=== PATIENT | female | born 1955 | race Caucasian/White ===

== ENCOUNTER 2017-09-24 21:21 | Observation (INO) | payer OTHER, SELFPAY ==
--- OUTSIDE RECORDS SUMMARY | 2017-09-24 21:23 | XMS REPORT | Clinical Summary ---
:1955 Author Organization [facility] Address [address] [place] [id number] Care Team Providers Name Role Phone Quang Jessica MD Primary Care Provider Allergies Active Allergy Reactions Severity Noted Date Comments Griseofulvin 10/22/2015 Sumatriptan 10/22/2015 Mefloquine 10/22/2015 Minocycline 10/22/2015 Nsaids (Non-Steroidal Anti-Inflammatory Drug) 10/22/2015 Rifampin 10/22/2015 Sulfa (Sulfonamide Antibiotics) 10/22/2015 Tizanidine 10/22/2015 Current Medications No known medications Active Problems Not on file Social History Tobacco Use Types Packs/Day Years Used Date Never Smoker Alcohol Use Drinks/Week oz/Week Comments No admits to drinking 3 times a year. Sex Assigned at Date Recorded Not on file Last Filed Vital Signs Not on file Plan of Treatment Health Maintenance Due Date Last Done Comments PAP SMEAR 07/24/1975 COLONOSCOPY 2004 MAMMOGRAM 2004 SHINGRIX VACCINE (#1) 2004 ZOSTER VACCINE 2014 INFLUENZA VACCINE 12/13/2017 Results Not on fileafter 09/23/2016 Insurance Payer Benefit Plan / Group Subscriber ID Type Phone Address AETNA AETNA HMO,POS,EPO, MC/EC xxxxxxxxx HMO
[2017-09-24 22:05] LABS: Absolute Lymphocytes (CBC) 2.2 K/uL (0.7-4.9); Absolute Monocytes 0.4 K/uL (0.1-1.3); Basophils % 0.9 % (0-1.3); Eosinophils % 3.7 % (0-4.4); Hematocrit 36.4 % (36.0-45.0); Lymphocytes % 37.4 % (15.3-44.8); MCH 31.8 pg (27.0-35.0); MCV 92.9 fL (80-100); MPV 9.4 fL (7.6-11.3); Monocytes % 6.8 % (3.3-12.3); RBC Red Blood Cell Count 3.92 M/uL (3.86-4.86)
--- NOTE | 2017-09-24 22:15 | RAD REPORT ---
EXAM DESCRIPTION: RAD - Chest Single View - 09/24/2017 10:06 pm CLINICAL HISTORY: Chest pain. COMPARISON: 07/23/2012 FINDINGS: Portable technique limits examination quality. The lungs are grossly clear. The heart is normal in size. No displaced fractures. IMPRESSION: No acute intrathoracic process suspected.
[2017-09-24 22:17] LABS: Protime INR 0.92
[2017-09-24 22:18] LABS: Bicarbonate 25 mEq/L (21-31); Glucose Level 144 mg/dL (65-120); Potassium 3.4 mEq/L (3.6-5.0); Sodium Level 139 mEq/L (135-145)
[2017-09-24 22:24] LABS: ALT/SGPT 13 IU/L (10-60); AST/SGOT 20 IU/L (10-42); Albumin 3.9 g/dL (3.2-5.5); Alkaline Phosphatase 49 IU/L (42-121); BUN Blood Urea Nitrogen 17 mg/dL (6-20); Bilirubin Direct < 0.1 mg/dL (0-0.2); Bilirubin Total 0.3 mg/dL (0.3-1.2); Creatine Phosphokinase 45 IU/L (22-269); Magnesium 1.8 mg/dL (1.8-2.5); Protein, Total 6.8 g/dL (6.0-8.3)
[2017-09-24 22:28] LABS: CKMB Creatine Kinase MB 0.7 ng/ml (0.3-4.0)
[2017-09-24] MEDS ORDERED: NITROGLYCERIN 0.4 MG/TAB SL ONE (22:52)
[2017-09-24] MEDS ORDERED: ACETAMINOPHEN 500 MG TAB PO PRN (23:19)
[2017-09-24] MEDS ORDERED: MORPHINE 4 MG/ML SYR ONE (23:29)
--- NOTE | 2017-09-24 23:31 | EDPHYS ---
Physician Documentation [facility] Name: Rosario Jorge Age: 62 yrs Sex: Female : 1955 Arrival Date: 09/24/2017 Time: 21:23 Bed 26 Private MD: ED Physician Joel Lua HPI: 09/25 05:29 This 62 yrs old Female presents to ER via EMS with complaints of Chest Pain. tw4 05:29 The patient or guardian reports chest pain that is located primarily in the anterior tw4 chest wall. Onset: today. The pain does not radiate. Associated signs and symptoms: The patient has no apparent associated signs or symptoms. The chest pain is described as dull, a heaviness. Duration: The patient or guardian reports a single episode. Modifying factors: The symptoms are alleviated by nothing. the symptoms are aggravated by nothing. Severity of pain: At its worst the pain was moderate in the emergency department the pain is unchanged. Historical: - Allergies: 09/24 21:57 Sulfa (Sulfonamide Antibiotics); tl3 - Immunization history:: Adult Immunizations up to date. - Social history:: Smoking status: Patient/guardian denies using tobacco, never smoked. ROS: 09/25 05:29 Constitutional: Negative for fever, chills, and weight loss, Respiratory: Negative for tw4 shortness of breath, cough, wheezing, and pleuritic chest pain, Abdomen/GI: Negative for abdominal pain, nausea, vomiting, diarrhea, and constipation, Back: Negative for injury and pain, MS/Extremity: Negative for injury and deformity. Cardiovascular: Positive for chest pain, Negative for edema, orthopnea, palpitations. Exam: 05:29 Constitutional: This is a well developed, well nourished patient who is awake, alert, tw4 and in no acute distress. 05:29 Chest/axilla: Normal chest wall appearance and motion. Nontender with no deformity. tw4 No lesions are appreciated. Cardiovascular: Regular rate and rhythm with a normal S1 and S2. No gallops, murmurs, or rubs. Normal PMI, no JVD. No pulse deficits. Respiratory: Lungs have equal breath sounds bilaterally, clear to auscultation and percussion. No rales, rhonchi or wheezes noted. No increased work of breathing, no retractions or nasal flaring. Abdomen/GI: Soft, non-tender, with normal bowel sounds. No distension or tympany. No guarding or rebound. No evidence of tenderness throughout. Back: No spinal tenderness. No costovertebral tenderness. Full range of motion. MS/ Extremity: Pulses equal, no cyanosis. Neurovascular intact. Full, normal range of motion. Vital Signs: 09/24 21:57 BP 138 / 92; Pulse 78; Resp 18; Pulse Ox 100% on R/A; tl3 22:28 BP 130 / 72; Pulse 80; Resp 18; Pulse Ox 96% ; tl3 23:35 BP 120 / 80; Pulse 79; Resp 16; Pulse Ox 98% on 2 lpm NC; tl3 09/25 00:18 BP 124 / 84; Pulse 73; Resp 16; Pulse Ox 97% on 2 lpm NC; tl3 00:18 Pain 6/10; tl3 MDM: 09/24 21:24 Patient medically screened. 09/25 05:42 Differential diagnosis: abnormal EKG, acute myocardial infarction. TREMAYNE Risk Score: 1 - tw4 patient's age is greater or equal to 65 years, 1- Known CAD. Data reviewed: vital signs, nurses notes. Data interpreted: fashion marketer: rhythm is normal sinus rhythm, Pulse oximetry: Interpretation: normal. Counseling: I had a detailed discussion with the patient and/or guardian regarding: the historical points, exam findings, and any diagnostic results supporting the discharge/admit diagnosis. Physician consultation: Logan Hernandez MD regarding admission, patient's condition, and will see patient in inpatient room. Admission orders: after a detailed discussion of the patient's condition and case, the admit orders are written by me. 09/24 21:29 Order name: Basic Metabolic Panel 09/24 21:29 Order name: BNP 09/24 21:29 Order name: CBC with Diff; Complete Time: 22:44 09/24 21:29 Order name: Ckmb; Complete Time: 22:44 09/24 21:29 Order name: CPK; Complete Time: 22:44 09/24 21:29 Order name: LFT's; Complete Time: 22:44 09/24 21:29 Order name: Magnesium; Complete Time: 22:44 09/24 21:29 Order name: PT-INR; Complete Time: 22:44 tw4 09/24 21:29 Order name: Ptt, Activated; Complete Time: 22:44 tw4 09/24 21:29 Order name: Troponin (emerg Dept Use Only); Complete Time: 22:44 tw4 09/24 21:30 Order name: Basic Metabolic Panel; Complete Time: 22:44 EDIN 09/24 21:30 Order name: BNP B-Type Natriuretic Peptide; Complete Time: 22:44 EDIN 09/24 23:21 Order name: Lipid Profile [facility] 09/24 23:21 Order name: Lipid Profile [facility] 09/24 21:29 Order name: XRAY Chest (1 view); Complete Time: 22:44 tw4 09/24 21:29 Order name: EKG; Complete Time: 21:30 tw 09/24 21:29 Order name: Cardiac monitoring; Complete Time: 22:04 tw4 09/24 21:29 Order name: EKG - Nurse/Tech; Complete Time: 22:04 tw 09/24 21:29 Order name: IV Saline Lock; Complete Time: 22:04 tw4 09/24 23:21 Order name: Heart Healthy [facility] 09/24 23:21 Order name: Echo with Doppler [facility] 09/24 23:21 Order name: Echo with Doppler [facility] 09/24 23:21 Order name: EKG Electrocardiogram [facility] 09/24 23:21 Order name: EKG Electrocardiogram [facility] 09/24 23:21 Order name: Troponin I [facility] 09/24 23:21 Order name: Troponin I [facility] 09/24 23:21 Order name: Troponin I [facility] 09/24 21:29 Order name: Labs collected and sent; Complete Time: 22:04 tw4 09/24 21:29 Order name: O2 Per Protocol; Complete Time: 22:04 tw4 09/24 21:29 Order name: O2 Sat Monitoring; Complete Time: 22:04 tw4 Administered Medications: 09/24 22:55 Drug: Nitroglycerin 0.4 mg Route: Sublingual; tl3 23:00 Drug: Nitroglycerin 0.4 mg Route: Sublingual; tl3 09/25 00:44 Follow up: Response: No adverse reaction; Blood pressure is lowered tl3 00:45 Follow up: Response: No adverse reaction tl3 09/24 23:35 Drug: morphine 4 mg Route: IVP; Infused Over: 5 mins; Site: right antecubital; tl3 09/25 00:18 Follow up: Pain 6/10 Adult; Response: No adverse reaction; Pain is decreased tl3 01:06 Drug: morphine 2 mg Route: IVP; Infused Over: 3 mins; Site: right antecubital; tl3 01:11 Follow up: Response: No adverse reaction; Pain is decreased tl3 Disposition: 09/24/17 23:30 Hospitalization ordered by Logan Hernandez for Observation. Preliminary diagnosis are Chest pain, unspecified, Angina pectoris, unspecified. - Bed requested for Telemetry/MedSurg (observation). - Status is Observation. tl3 - Condition is Stable. - Problem is new. - Symptoms have improved. UTI on Admission? No Signatures: Dispatcher [employer] EDMS Lakia Roberts RN RN Joel Rodgers MD MD tw4 Mary Burroughs RN RN tl3 Corrections: (The following items were deleted from the chart) 09/24 23:34 23:30 Hospitalization Ordered by Logan Hernandez MD for Observation. Preliminary diagnosis is Chest pain, unspecified; Angina pectoris, unspecified. Bed requested for Telemetry/MedSurg (observation). Status is Observation. Condition is Stable. Problem is new. Symptoms have improved. UTI on Admission? No. tw4 09/25 01:12 09/24 23:34 09/24/2017 23:30 Hospitalization Ordered by Logan Hernandez MD for tl3 Observation. Preliminary diagnosis is Chest pain, unspecified; Angina pectoris, unspecified. Bed requested for Telemetry/MedSurg (observation). Status is Observation. Condition is Stable. Problem is new. Symptoms have improved. UTI on Admission? No. mw 09/25 05:41 05:29 Constitutional: Negative for fever, chills, and weight loss, Cardiovascular: tw4 Negative for chest pain, palpitations, and edema, Respiratory: Negative for shortness of breath, cough, wheezing, and pleuritic chest pain, Abdomen/GI: Negative for abdominal pain, nausea, vomiting, diarrhea, and constipation, Back: Negative for injury and pain, Neuro: Negative for headache, weakness, numbness, tingling, and seizure, tw4
--- NOTE | 2017-09-24 23:31 | ER ---
Nurse's Notes [facility] Name: Rosario Jorge Age: 62 yrs Sex: Female : 1955 Arrival Date: 09/24/2017 Time: 21:23 Bed 26 Private MD: Diagnosis: Chest pain, unspecified;Angina pectoris, unspecified Presentation: 09/24 21:30 Presenting complaint: EMS states: pt c/o chest pain that radiates to her left arma nd tl3 up into the right side of her neck and jaw. 21:30 Transition of care: patient was not received from another setting of care. Onset of tl3 symptoms was September 24, 2017. Initial Sepsis Screen: Does the patient meet any 2 criteria? No. Patient's initial sepsis screen is negative. Does the patient have a suspected source of infection? No. Patient's initial sepsis screen is negative. Care prior to arrival: None. 21:30 Method Of Arrival: EMS: [facility] tl3 21:30 Acuity: EMILIA 2 tl3 Triage Assessment: 21:57 General: Appears in no apparent distress. comfortable, well groomed, well developed, tl3 well nourished, Behavior is calm, cooperative, appropriate for age. Pain: Complains of pain in chest Pain radiates to left arm. EENT: No signs and/or symptoms were reported regarding the EENT system. Neuro: Cardiovascular: Heart tones S1 S2 present Capillary refill < 3 seconds in bilateral fingers toes Patient's skin is warm and dry. Respiratory: Airway is patent Trachea midline Respiratory effort is even, unlabored, Respiratory pattern is regular, symmetrical, Breath sounds are clear bilaterally. GI: No signs and/or symptoms were reported involving the gastrointestinal system. : No signs and/or symptoms were reported regarding the genitourinary system. Derm: No signs and/or symptoms reported regarding the dermatologic system. Musculoskeletal: No signs and/or symptoms reported regarding the musculoskeletal system. Historical: - Allergies: 21:57 Sulfa (Sulfonamide Antibiotics); tl3 - Immunization history:: Adult Immunizations up to date. - Social history:: Smoking status: Patient/guardian denies using tobacco, never smoked. Screenin:00 Abuse screen: Denies threats or abuse. Nutritional screening: No deficits noted. tl3 Tuberculosis screening: No symptoms or risk factors identified. Fall Risk None identified. Assessment: 22:00 Reassessment: pt resting quietly, in NAD, talkative, good skin color. tl3 22:00 Pain: Pain began 30 min ago. tl3 22:28 Reassessment: Patient appears in no apparent distress at this time. No changes from tl3 previously documented assessment. Patient and/or family updated on plan of care and expected duration. Pain level reassessed. Patient is alert, oriented x 3, equal unlabored respirations, skin warm/dry/pink. at bedside. 23:35 Reassessment: Patient appears in no apparent distress at this time. No changes from tl3 previously documented assessment. Patient and/or family updated on plan of care and expected duration. Pain level reassessed. Patient is alert, oriented x 3, equal unlabored respirations, skin warm/dry/pink. patient feeling some relief after nitro tabs. 09/25 00:18 Reassessment: Patient appears in no apparent distress at this time. No changes from tl3 previously documented assessment. Patient and/or family updated on plan of care and expected duration. Pain level reassessed. Patient is alert, oriented x 3, equal unlabored respirations, skin warm/dry/pink. Vital Signs: 09/24 21:57 BP 138 / 92; Pulse 78; Resp 18; Pulse Ox 100% on R/A; tl3 22:28 BP 130 / 72; Pulse 80; Resp 18; Pulse Ox 96% ; tl3 23:35 BP 120 / 80; Pulse 79; Resp 16; Pulse Ox 98% on 2 lpm NC; tl3 14 00:18 BP 124 / 84; Pulse 73; Resp 16; Pulse Ox 97% on 2 lpm NC; tl3 00:18 Pain 6/10; tl3 ED Course: 09/24 21:23 Patient arrived in ED. ds1 21:24 Joel Lua MD is Attending Physician. tw4 21:54 Mary Burroughs, GARETH is Primary Nurse. tl3 21:56 Triage completed. tl3 21:57 Arm band placed on left wrist. tl3 22:00 No apparent distress. Resting quietly. Awaiting lab results. tl3 22:00 Patient has correct armband on for positive identification. Placed in gown. Bed in low tl3 position. Call light in reach. Side rails up X 1. youth nutritional monitor on. Pulse ox on. NIBP on. 22:00 No provider procedures requiring assistance completed. Maintain EMS IV. Dressing tl3 intact. Good blood return noted. Site clean \T\ dry. Gauge \T\ site: 20g. Patient maintains SpO2 saturation greater than 95% on room air. 22:03 X-ray completed. Portable x-ray completed in exam room. Patient tolerated procedure la2 well. 22:06 XRAY Chest (1 view) In Process Unspecified. EDMS 23:30 Logan Hernandez MD is Hospitalizing Provider. tw4 09/25 00:42 Patient admitted, IV remains in place. tl3 Administered Medications: 09/24 22:55 Drug: Nitroglycerin 0.4 mg Route: Sublingual; tl3 23:00 Drug: Nitroglycerin 0.4 mg Route: Sublingual; tl3 09/25 00:44 Follow up: Response: No adverse reaction; Blood pressure is lowered tl3 00:45 Follow up: Response: No adverse reaction tl3 09/24 23:35 Drug: morphine 4 mg Route: IVP; Infused Over: 5 mins; Site: right antecubital; tl3 09/25 00:18 Follow up: Pain 6/10 Adult; Response: No adverse reaction; Pain is decreased tl3 01:06 Drug: morphine 2 mg Route: IVP; Infused Over: 3 mins; Site: right antecubital; tl3 01:11 Follow up: Response: No adverse reaction; Pain is decreased tl3 Outcome: 09/24 23:30 Decision to Hospitalize by Provider. tw4 09/25 00:42 Admitted to Med/surg accompanied by tech, via stretcher, with oxygen. tl3 Condition: stable Discharge instructions given to patient, family, Instructed on the need for admit, Demonstrated understanding of instructions. 01:12 Patient left the ED. tl3 Signatures: Dispatcher [employer] EDSD Parris Vail ds1 Daniella Cobos la2 Joel Lua MD MD tw4 Mary Burroughs RN RN tl3
[2017-09-25] MEDS ORDERED: MORPHINE 4 MG/ML SYR ONE (01:02)
[2017-09-25 01:28] VITALS: BMI 29.2
[2017-09-25] MEDS ORDERED: HYDROCODONE/APAP 10/325 TAB PO PRN (03:43)
[2017-09-25] MEDS ORDERED: ALPRAZOLAM 0.5 MG TABLET PO PRN (03:43)
[2017-09-25] MEDS ORDERED: CYCLOBENZAPRINE 10 MG TAB PO PRN (03:43)
[2017-09-25] MEDS ORDERED: ADALIMUMAB SQ SCH (03:45)
--- NOTE | 2017-09-25 03:58 | P.HP ---
Certification for Inpatient Patient admitted to: Observation With expected LOS: <2 Midnights Patient will require the following post-hospital care: None Practitioner: I am a practitioner with admitting privileges, knowledge of patient current condition, hospital course, and medical plan of care. Services: Services provided to patient in accordance with Admission requirements found in Title 42 Section 412.3 of the Code of Federal Regulations Patient History Date of Service: 09/25/17 Reason for admission: Chest pain rule out acute coronary syndrome History of Present Illness: Patient is a 62 year old female who came to the hospital with chest discomfort. She fell like there was a huge weight on her chest and she was not getting any better. The chest pain worsened and she got short of breath. She has a history of multiple autoimmune disease including rheumatoid arthritis and ulcerative colitis. However, she states the pain was not reproducible and she has not had this kind of pain with any of her medical conditions. She denies any nausea or vomiting. She denies any significant family history. She will be admitted to the hospital to be ruled out for acute coronary syndrome. Will go ahead and do an echocardiogram and possible stress testing in the morning. Allergies adhesive tape Allergy (Verified 09/25/17 01:41) Itching/Hives/Rash griseofulvin Allergy (Verified 09/25/17 01:41) Hives/Rash mefloquine [From Lariam] Allergy (Verified 09/25/17 01:41) Hives/Rash Sulfa (Sulfonamide Antibiotics) Allergy (Verified 09/25/17 00:33) Itching/Hives/Rash sumatriptan [From Imitrex] Allergy (Verified 09/25/17 01:41) Shortness of breath Easwyvaz-[id number] Antimigraine Agents Allergy (Verified 09/25/17 01:41) Shortness of breath minocycline Adverse Reaction (Verified 09/25/17 01:41) Nausea/Vomiting NSAIDS (Non-Steroidal Anti-Inflamma Adverse Reaction (Verified 09/25/17 01:41) Nausea/Vomiting rifampin Adverse Reaction (Verified 09/25/17 01:41) Nausea/Vomiting tizanidine [From Zanaflex] Adverse Reaction (Verified 09/25/17 01:41) Nausea/Vomiting Home Medications: Adalimumab [Humira 40 MG/0.8 ML*] 1 alok SQ Q10D 09/25/17 Alprazolam 1 tab PO BID PRN 09/25/17 B12/Levomefolate Calcium/B-6 [Foltx Tablet] 1 each PO DAILY 09/25/17 Clonazepam [Klonopin] 1 mg PO QID 09/25/17 Colesevelam HCl [Welchol] 4 tab PO DAILY 09/25/17 Cyclobenzaprine [Flexeril] 10 mg PO BEDTIME PRN 09/25/17 Cyproheptadine HCl 4 ml PO BID 09/25/17 Diphenox/Atropine [Lomotil] 1 tab PO DAILY 09/25/17 Hydrocodone 10/APAP 325 [Munson 10/325] 1 tab PO Q6H PRN 09/25/17 Levothyroxine [Synthroid*] 1 tab PO DAILY 09/25/17 Ondansetron [Zofran] 4 mg PO Q6H PRN 09/25/17 Vit D3/Folic Acid/B2/B6/B12 [Folgard Tablet] 1 each PO DAILY 09/25/17 Zolpidem Tartrate [Zolpidem Tartrate ER] 12.5 mg PO BEDTIME 09/25/17 - Past Medical/Surgical History Has patient received pneumonia vaccine in the past: Yes Diabetic: No -: resolved resistant staph infection 3.5 years ago -: celiac disease -: osteoporosis -: rheumatoid arthritis -: colitis -: frequent UTIs -: carpal tunnel -: bilateral broken wrist -: appendectomy 1997 -: lap ovarian cyst rupture 1988 -: sinus sx-partial ethmoidectomy, purvi bullosa 1991 -: left ACL repair -: partial hysterectomy -: thyroid surgery -: bladder suspension and rectal repair -: carpal tunnel repair - Family History Mother Medical History: Heart disease, GI disease, Cancer, Other (see notes) Notes: IBS Father Medical History: Heart disease - Social History Smoking Status: Never smoker Alcohol use: Yes CD- Drugs: No Caffeine use: No Place of Residence: Home Review of Systems 10-point ROS is otherwise unremarkable Physical Examination - Vital Signs Temperature: 97.7 F Blood Pressure: 131/69 Pulse: 70 Respirations: 20 Pulse Ox (%): 98 - Physical Exam General: Alert, In no apparent distress, Oriented x3 HEENT: Atraumatic, PERRLA, Mucous membr. moist/pink, EOMI, Sclerae nonicteric Neck: Supple, 2+ carotid pulse no bruit, No LAD, Without JVD or thyroid abnormality Respiratory: Clear to auscultation bilaterally, Normal air movement Cardiovascular: Regular rate/rhythm, Normal S1 S2, No murmurs Gastrointestinal: Normal bowel sounds, Soft and benign, Non-distended, No tenderness, No rebound, No guarding Musculoskeletal: No clubbing, No swelling, No tenderness Integumentary: No rashes Neurological: Normal gait, Normal speech, Normal strength at 5/5 x4 extr, Normal tone, Sensation intact, Cranial nerves 3-12 intact, Normal affect Lymphatics: No axilla or inguinal lymphadenopathy - Studies Laboratory Data (last 24 hrs) 09/24/17 21:30: PT 10.8, INR 0.92, APTT 28.7 09/24/17 21:30: WBC 5.9, Hgb 12.5, Hct 36.4, Plt Count 267 09/24/17 21:30: B-Natriuretic Peptide 23 09/24/17 21:30: Sodium 139, Potassium 3.4 L, BUN 17, Creatinine 0.88, Glucose 144 H, Magnesium 1.8, Total Bilirubin 0.3, AST 20, ALT 13, Alkaline Phosphatase 49 Assessment & Plan - Problems (Diagnosis) (1) Chest pain, rule out acute myocardial infarction Current Visit: Yes Status: Acute (2) Rheumatoid arthritis Current Visit: Yes Status: Acute (3) Ulcerative colitis Current Visit: Yes Status: Acute (4) Celiac disease Current Visit: Yes Status: Acute (5) Irritable bowel syndrome Current Visit: Yes Status: Acute (6) Fibromyalgia Current Visit: Yes Status: Acute - Plan 1. Serial troponins and EKG 2. Cardiology consultation 3. Echocardiogram and stress test in a.m.. If negative possible discharge home 4. Anti-platelet therapy, anti coagulation, beta-maribel, statin, and O2 as needed 5. IV morphine for pain 6. Nitro p.r.n. 7. GI and DVT prophylaxis - Advance Directives Does patient have a Living Will: Yes Does patient have a Durable POA for Healthcare: Yes - Code Status/Comfort Care Code Status Assessed: Yes Code Status: Full Code Critical Care: No Time Spent Managing PTS Care (In Minutes): 50
[2017-09-25 04:13] VITALS: O2SAT 98
[2017-09-25] MEDS ORDERED: REGADENOSON 0.4 MG/5 ML SYR IV ONE (08:11)
[2017-09-25] MEDS ORDERED: VIT D3 PO SCH (09:00)
[2017-09-25] MEDS ORDERED: LEVOTHYROXINE SOD 0.1 MG TAB PO SCH (09:00)
[2017-09-25] MEDS ORDERED: LEVOMEFOLATE CALCIUM PO SCH (09:00)
[2017-09-25] MEDS ORDERED: clonazePAM 1 MG TAB PO SCH (09:00)
[2017-09-25] MEDS ORDERED: FOLIC ACID PO SCH (09:00)
[2017-09-25] MEDS ORDERED: B12 PO SCH ×2 (09:00)
[2017-09-25] MEDS ORDERED: METOPROLOL TAR 50 MG TAB PO SCH (09:00)
[2017-09-25] MEDS ORDERED: ENOXAPARIN 40 MG/0.4 ML SQ SCH (09:00)
[2017-09-25] MEDS ORDERED: DIPHENOX/ATROP SULF 1 TAB PO SCH (09:00)
[2017-09-25] MEDS ORDERED: CYPROHEPTADINE PO SCH (09:00)
[2017-09-25] MEDS ORDERED: B6 PO SCH ×2 (09:00)
[2017-09-25] MEDS ORDERED: ASPIRIN EC 81 MG TAB PO SCH (09:00)
[2017-09-25] MEDS ORDERED: COLESEVELAM HCL PO SCH (09:00)
[2017-09-25] MEDS ORDERED: B2 PO SCH (09:00)
--- NOTE | 2017-09-25 10:12 | RAD REPORT ---
EXAM DESCRIPTION: NM - Rest Stress Cardiac Imaging - 09/25/2017 10:05 am CLINICAL HISTORY: Chest pain. COMPARISON: None. TECHNIQUE: The patient was administered approximately 10mCi of Tc 99m Sestamibi prior to resting SPE CT imaging of the heart. The patient was then administered approximately 30 mCi of Tc 99m Sestamibi f ollowing exercise or pharmacologic stress. Multiplanar SPECT images were reviewed. FINDINGS: No stress induced ischemic defect is seen to suggest stress induced ischemia. No fixed def ect is seen to suggest hibernating myocardium or scarred myocardium. The end diastolic volume is 68 ml, the end systolic volume is 24 ml, and the ejection fraction is 65 %. IMPRESSION: No stress induced ischemia.
--- NOTE | 2017-09-25 11:52 | TREADPHA ---
DX: CHEST PAIN Date of Study: 09/25/17 Ht: 5 4.5 Wt: 173 lb 6.4 oz Consulting Physician: VENICE MEDICATIONS: TYLENOL, NORCO, XANAX, ASPIRIN, KLONOPIN, FLEXERIL, LOMOTIL, LOVENOX. HISTORY: CHEST PAIN, MYOCARDIAL INFARCTION WAS RULED OUT. PHYSICIAL EXAMINATION: RESTING B.P.: 96/72 RESTING H.R.: 68 RESTING EKG: NORMAL PROTOCOL: LEXISCAN EXERCISE TIME: 3:30 B.P. AT PEAK STRESS: 120/86 IMPRESSION: LEXISCAN STRESS TEST PERFORMED. CARDIOLITE INJECTED PER PROTOCOL. NO SUPRA VENTRICULAR TACHYCARDIA OR VENTRICULAR TACHYCARDIA NOTED. COMPLAINTS OF CHEST PAIN, NO EKG CHANGES, SEE NUCLEAR MEDICINE REPORT. NON DIAGNOSTIC EKG WITH LEXISCAN STRESS.
--- NOTE | 2017-09-25 14:45 | EKG ---
Test Date: 2017-09-24 Test Time: 21:27:31 Satellite Dish Repairer: AGUSTO MEASUREMENT RESULTS: Intervals: Rate: 75 IL: 158 QRSD: 88 QT: 416 QTc: 464 [place]: P: 57 IL: 158 QRS: 43 T: 62 INTERPRETIVE STATEMENTS: Normal sinus rhythm Normal ECG Compared to ECG 10/15/2005 06:25:00 Sinus bradycardia no longer present Electronically Signed On 09-25-17 14:44:23 CDT by Gasper Damico
--- NOTE | 2017-09-25 15:49 | ECHO ---
HEIGHT: 5 ft 4.5 in WEIGHT: 173 lb 6.4 oz DATE OF STUDY: 09/25/[address]: Logan Hernandez MD 2-DIMENSIONAL: YES M.MODE: YES DOPPLER: YES COLOR FLOW: YES TDS: NO PORTABLE: NO DEFINITY: NO BUBBLE STUDY: NO DIAGNOSIS: CHEST PAIN CARDIAC HISTORY: CATHERIZATION: NO SURGERY: NO PROSTHETIC VALVE: NO PACEMAKER: NO MEASUREMENTS (cm) DIASTOLIC (NORMALS) SYSTOLIC (NORMALS) IVSd 1.4 (0.6-1.2) LA Diam 3.3 (1.9-4.0) LVEF 64% LVIDd 3.8 (3.5-5.7) LVIDs 2.5 (2.0-3.5) %FS 34% LVPWd 1.1 (0.6-1.2) Ao Diam 2.9 (2.0-3.7) 2 DIMENSIONAL ASSESSMENT: RIGHT ATRIUM: NORMAL LEFT ATRIUM: NORMAL RIGHT VENTRICLE: NORMAL LEFT VENTRICLE: NORMAL TRICUSPID VALVE: NORMAL MITRAL VALVE: NORMAL PULMONIC VALVE: NORMAL AORTIC VALVE: NORMAL PERICARDIAL EFFUSION: NONE AORTIC ROOT: NORMAL LEFT VENTRICULAR WALL MOTION: NORMAL DOPPLER/COLOR FLOW: TRACE TRICUSPID REGURGITATION. NORMAL RIGHT VENTRICULAR SYSTOLIC PRESSURE. COMMENTS: NORMAL 2D ECHOCARDIOGRAM. TRACE TRICUSPID REGURGITATION. TECHNOLOGIST: Bill ROGERS
[2017-09-25 16:24] VITALS: BP 114/56; TEMP 97.8
[2017-09-25] MEDS ORDERED: ZOLPIDEM TARTRATE 12.5 MG PO SCH (21:00)
== END 2017-09-25 17:53 | disposition home or self-care (01) ==
LOC: ER 21:21 → ERHOLD 09-25 00:04 → 2ND 09-25 00:35
PROVIDERS: ADMIT Hospitalist; ATTEND Family Medicine
DX: R07.9 Chest pain, unspecified (principal); K51.90 Ulcerative colitis, unspecified, without complications; K90.0 Celiac disease; K58.9 Irritable bowel syndrome, unspecified; M79.7 Fibromyalgia; M06.9 Rheumatoid arthritis, unspecified; M81.0 Age-related osteoporosis without current pathological fracture
CPT/HCPCS: 36415; 71045; 78452; 80048; 80061; 80076; 82550; 82553; 83735; 83880; 84484; 85025; 85610; 85730; 93005; 93017; 93306; 96374; 99285; A9500; G0378; J1650; J2785

== ENCOUNTER 2019-08-25 03:28 | Inpatient (IN) | payer OTHER ==
--- OUTSIDE RECORDS SUMMARY | 2019-08-25 03:37 | XMS REPORT ---
:1955 Author Organization [facility] t Address [address] [place] [address] Care Team Providers Name Role Phone Unavailable Unavailable Unavailable Payers Payer Name Policy Type Policy Number Effective Date Expiration D ate Problems This patient has no known problems. Allergies, Adverse Reactions, Alerts Allergy Name Allergy Status Severity Reaction(s) Onset Inactive Treat ing Comments Type Date Date Clinician adhesive tape DA Active SV 2-24 00:00: 00 latex DA Active MO 3-30 00:00: 00 mefloquine DA Active MO 3 00:00: 00 NSAIDS DA Active MO 2015-05 (Non-Steroidal 0-03 Anti-Inflamma 00:00: 00 Sulfa DA Active MO 2015-05 (Sulfonamide 0-03 Antibiotics) 00:00: 00 rifampin DA Active U 2015-05 0-03 00:00: 00 griseofulvin DA Active MO 2015-05 0-03 00:00: 00 adhesive tape DA Active MO 2015-05 0-03 00:00: 00 sumatriptan DA Active SV 2015-05 0-03 00:00: 00 minocycline DA Active U 2015-05 0-03 00:00: 00 tizanidine DA Active MO 2015-05 0-03 00:00: 00 oats DA Active MO 2015-05 0-03 00:00: 00 barley DA Active MO 2015-05 0-03 00:00: 00 wheat DA Active MO 2015-05 0- 00:00: 00 oats FA Active MO 2015-05 0- 00:00: 00 barley FA Active MO 2015-05 0- 00:00: 00 wheat FA Active MO 2015-05 0- 00:00: 00 KINESIOLOGY DA Active MO TAPE 02-08 00:00: 00 RYE DA Active MO 02-08 00:00: 00 Medications This patient has no known medications. Results Test Description Test Time Test Comments Text Results Atomic Results Result Comments - MRI UP JNT W/O 2019-07-05 16:17:00 Patient Name: BERNARD MARCUS CONT RT Unit No: [id number] EXAMS: CPT CODE: [id number] MR I UP JNT W/[place] [id number] MR of the right shoulder without contrast TECHNIQUE: Paracoronal, para sagittal and axial multisequence images obtained. COMP ARISON: MRI dated 01/27/2018. FINDINGS: Acromioclavicul ar joint: Mild degenerative changes. Rotator cuff: Marked suprasp inatus tendinosis is again demonstr ated with undersurface/interstiti al tear anteriorly, likely similar t o prior exam. Additional interstitia l tear of the posterior supraspinatu s tendon is low-grade and slightly more apparent than prior exam. Low-grade interstitial tear of the superior subscap ularis tendon is present. Rotator c uff musculature is normal in siz e and signal intensity. Long head biceps tendon: The biceps te ndon is medially subluxated with superimposed tendinosis. The re is suspected partial tear of th e proximal tendon near the anc hor. Labrum: Tear of the sup erior to posterior inferior labrum is not significant changed. Cartilage/ bone: No full thi ckness chondral defect. No acute fr acture. Bone marrow signal is within normal limits. Other: Small joint effusion is present. IMPRESSION: 1. Undersurface/interstitial te ar of the anterior supraspinatus tendon, similar to prior exam. Addit ional interstitial tear of the posterior supraspinatus tend on is slightly more apparent than prior exam. 2. Medial subl uxation of the biceps tendon with supra spinatus tendinosis and suspected partial tear proximally. 3. Tear of the superior to posterior inferi or labrum. Electronic ally Signed by Aparna Hallman on 07/05/2019 at 1 617 Re ported and signed by: Ray Hallman M.D. CC: Bahman Garg MD Technologist : GILMA BOYLE RT(R) Transcribed D/T: ([id number]) [facility]: BERNARD KING [address] PHYS: Bahman Akers OB: 1955 AGE: 63 SEX: F [place] [address] A CCT NO: [id number] LOC: Y.MRI PHONE #: [phone] E XAM DATE: 07/04/2019 STATUS: DEP CLI FAX #: [phone] R AD #: [id number] D/C DT PAGE 1 Signed Report Pa tient Name: BERNARD KING Unit No: [id number] EXAMS: CPT CODE: [id number] MRI UP JNT W/[place] [id number] <Continued> Orig Print D/T: S: 07/05/2019 ([id number]) [facility] NAME: BERNARD KING [address] PHYS: Bahman Akers OB: 1955 AGE: 63 SEX: F [place] [id number] A CCT NO: [id number] LOC: Y.MRI PHONE #: [phone] E XAM DATE: 07/04/2019 STATUS: DEP CLI FAX #: [phone] R AD #: [id number] D/C DT PAGE 2 Signed Report
[2019-08-25] MEDS ORDERED: NA CHLORIDE 0.9% 2,000 ML ONE (04:05)
[2019-08-25] MEDS ORDERED: AZITHROMYCIN 500 MG INJ IVPB ONE (04:05)
[2019-08-25] MEDS ORDERED: ACETAMINOPHEN 500 MG TAB ONE (04:05)
[2019-08-25] MEDS ORDERED: CEFTRIAXONE/SWI 1gm 2 GM/20 ML SYR ONE (04:05)
[2019-08-25] MEDS ORDERED: NA CHLORIDE 0.9% 250 ML ONE (04:05)
[2019-08-25 04:12] LABS: Absolute Lymphocytes (CBC) 0.8 K/uL (0.7-4.9); Basophils % 0.3 % (0-1.3); Hematocrit 39.2 % (36.0-45.0); Lymphocytes % 5.9 % (15.3-44.8); MPV 9.3 fL (7.6-11.3); RBC Red Blood Cell Count 4.19 M/uL (3.86-4.86)
[2019-08-25 04:15] LABS: Protime INR 0.94
[2019-08-25 04:27] LABS: Urine Blood NEGATIVE (NEG); Urine Glucose NEGATIVE (NEG); Urine Protein NEGATIVE (NEG); Urine Specific Gravity 1.025 (1.005-1.030)
[2019-08-25 04:34] LABS: ALT/SGPT 19 U/L (12-78); AST/SGOT 20 U/L (15-37); Albumin 3.6 g/dL (3.4-5.0); Alkaline Phosphatase 67 U/L (45-117); Amylase Level 25 U/L (25-115); BUN Blood Urea Nitrogen 13 mg/dL (7-18); Bicarbonate 26 mmol/L (21-32); Bilirubin Direct < 0.1 mg/dL (0-0.2); Bilirubin Total 0.3 mg/dL (0.2-1.0); CKMB Creatine Kinase MB < 1.0 ng/mL (0.3-3.6); Creatine Phosphokinase 84 U/L (26-192); Glucose Level 127 mg/dL (74-106); Lipase 76 U/L (73-393); Magnesium 1.8 mg/dL (1.8-2.4); NT PRO-BNP 120 pg/mL (<125); Potassium 4.1 mmol/L (3.5-5.1); Protein, Total 7.7 g/dL (6.4-8.2); Sodium Level 139 mmol/L (136-145); Troponin (Emerg Dept Use Only) < 0.02 ng/mL (0.0-0.045)
[2019-08-25 04:48] LABS: Urine Bacteria <20 /HPF (<20); Urine RBC NONE SEEN /HPF (NONE SEEN)
[2019-08-25 04:49] LABS: Urine Culture Reflex Order NOT NEEDED
[2019-08-25 05:05] LABS: Blood Morphology Comment NOT SEEN (NOT SEEN); Platelet Estimate ADEQ
[2019-08-25] MEDS ORDERED: NA CHLORIDE 0.9% 1,000 ML ONE (06:18)
--- NOTE | 2019-08-25 06:28 | ER ---
Nurse's Notes [facility] Name: Rosario Jorge Age: 64 yrs Sex: Female : 1955 Arrival Date: 08/25/2019 Time: 03:37 Bed 30 Private MD: Diagnosis: Fever, unspecified;Pneumonia due to other specified bacteria-left lower lobe, GGO;Altered mental status, unspecified;Hypoxemia;Elevated white blood cell count Presentation: 08/24 03:20 Chief complaint: EMS states: called for patient with shortness of breath the past few lp1 days, self quarantine at home due to feeling sick; States fever and neck pain that began yesterday; 103.4 temp per EMS, 94% on RA, 115 HR. 03:20 Coronavirus screen: Surgical mask placed on patient. Patient moved to private room, lp1 placed in contact and droplet isolation with eye protection until further assessment. Patient reports a cough. Patient reports shortness of breath or difficulty breathing. Patient reports a measured and/or subjective temperature greater than 100.4F. Patient denies travel on a cruise ship or to a country the [facility] currently lists as an affected area. Patient denies contact with known and/or suspected case of COVID-19. Ebola Screen: No symptoms or risks identified at this time. Initial Sepsis Screen: Does the patient meet any 2 criteria? RR > 20 per min. Temp <36.0*C (96.8*F)) or > 38.3*C (100.9*F). Altered Mental Status. HR > 90 bpm. Yes Does the patient have a suspected source of infection? Yes: Other: unknown. Risk Assessment: Do you want to hurt yourself or someone else? Patient reports no desire to harm self or others. Onset of symptoms was August 25, 2019. 03:20 Method Of Arrival: EMS: [facility] lp1 03:20 Acuity: EMILIA 2 lp1 Historical: - Allergies: 04:15 Sulfa (Sulfonamide Antibiotics); lp1 04:26 GRISEOFULVIN; lp1 04:26 Mefloquine; lp1 04:26 Imitrex; lp1 04:26 Minocycline; lp1 04:26 NSAIDS; lp1 04:26 Rifampin; lp1 04:26 Tizanidine; lp1 - Home Meds: 04:26 Unable to obtain [Active]; lp1 - PMHx: 04:15 COPD; lp1 04:26 Osteoporosis; celiac disease; colitis; Rheumatoid Arthritis; lp1 - PSHx: 04:26 Appendectomy; carpel tunnel; sinus surgery; partial hysterectomy; Bladder suspension; lp1 thyroid surgery; - Immunization history:: Adult Immunizations up to date. - Family history:: not pertinent. - Social history:: Smoking status: Patient denies any tobacco usage or history of. Screenin:16 Abuse screen: Denies threats or abuse. Denies injuries from another. Nutritional lp1 screening: No deficits noted. Tuberculosis screening: No symptoms or risk factors identified. 04:28 Fall Risk No fall in past 12 months (0 pts). Secondary diagnosis (15 points) confused. rv IV access (20 points). Ambulatory Aid- None/Bed Rest/Nurse Assist (0 pts). Gait- Normal/Bed Rest/Wheelchair (0 pts) Mental Status- Overestimates/Forgets Limitations (15 pts.). Total Liriano Fall Scale indicates Low Risk Score (25-44 pts). Fall prevention measures have been instituted. Side Rails Up X 2 Frequent Obs/Assesments occuring As available Patient and Family Educated on Fall Prevention Program and strategies. Assessment: 03:59 General: Appears in no apparent distress. comfortable, ill, Behavior is. Pain: Denies rv pain. Neuro: Level of Consciousness is confused. 04:28 Cardiovascular: Patient's skin is warm and dry. Rhythm is sinus tachycardia. rv Respiratory: Airway is patent Breath sounds are clear bilaterally. Derm: Skin is intact. 05:30 Reassessment: Patient appears in no apparent distress at this time. PATIENT IS STILL rv CONFUSED. BOLUS IS DONE AND HEART RATE IS GOING SLOWER TO 90s. DR LONDONO IS PLANNING TO DO A SPINAL TAP. 06:31 Reassessment: Patient appears in no apparent distress at this time. DONE SPINAL TAP ON rv THE PATIENT. ASSISTED DR LONDONO. PLACED PATIENT ON SUPINE POSITION AND INSTRUCTED THE PATIENT TO MAINTAIN IT FOR 30 MINUTES. 07:00 Reassessment: RECD REPORT FROM [facility]. 64YO WF P/W AMS AND FEVER. PT ON DROPLET PXN, bp ADMIT IN PROCESS. 07:26 Neuro: Level of Consciousness is awake, confused, Oriented to person, situation, Door To Door Selling Agent bp are equal bilaterally Speech is slurred, Facial symmetry appears normal, Pupils are PERRLA. 07:38 Reassessment: DR BRUCE AT B/S FOR ADMIT EVAL. bp 08:46 Reassessment: REPORT COMPLETE. PT VICKI WITH PCT, DROPLET PXN IN PLACE. bp 08/25 08:54 Reassessment: OSCAR# [id number]. iw Vital Signs: 08/24 03:25 BP 116 / 64; Pulse 113; Resp 26; Temp 103.2(O); Pulse Ox 97% on R/A; Weight 78.02 kg lp1 (R); Height 5 ft. 4 in. (162.56 cm); 03:45 BP 113 / 62; Pulse 115; Resp 15; Pulse Ox 97% on R/A; lp1 04:00 BP 117 / 63; Pulse 112; Resp 21; Pulse Ox 94% on R/A; lp1 04:30 BP 104 / 57; Pulse 105; Resp 19; Pulse Ox 98% on R/A; rv 05:00 BP 92 / 50; Pulse 99; Resp 18; Pulse Ox 99% on R/A; rv 05:30 BP 92 / 49; Pulse 93; Resp 19; Pulse Ox 98% on R/A; rv 05:59 Temp 99.7(O); lp1 06:00 BP 95 / 50; Pulse 88; Resp 17; Pulse Ox 95% on R/A; rv 06:30 BP 94 / 55; Pulse 89; Resp 18; Pulse Ox 96% on R/A; rv 07:04 BP 95 / 58; Pulse 90; Resp 19; Temp 99.5; Pulse Ox 98% ; bp 08:00 BP 96 / 62; Pulse 87; Resp 20; Pulse Ox 94% ; bp 08:46 BP 107 / 63; Pulse 83; Resp 18; Temp 99.3; Pulse Ox 95% ; bp 03:25 Body Mass Index 29.52 (78.02 kg, 162.56 cm) lp1 Natalya Coma Score: 04:28 Eye Response: spontaneous(4). Verbal Response: confused(4). Motor Response: obeys rv commands(6). Total: 14. ED Course: 03:25 Airborne precautions initiated. Patient placed in negative pressure room. Droplet lp1 isolation initiated. 03:30 Patient has correct armband on for positive identification. Placed in gown. Bed in low lp1 position. Call light in reach. crime scene technician on. Pulse ox on. NIBP on. 03:35 Inserted saline lock: 18 gauge in right antecubital area, using aseptic technique. rv Blood collected. 03:35 Initial lab(s) drawn, by me, sent to lab. First set of blood cultures drawn by me. rv 03:37 Patient arrived in ED. lp1 03:43 lKaus Londono MD is Attending Physician. tony 03:45 Second set of blood cultures drawn by me. Inserted saline lock: 20 gauge in left rv forearm, using aseptic technique. Blood collected. 03:58 Tello Espino, RN is Primary Nurse. rv 04:09 Arm band placed on. lp1 04:13 Triage completed. lp1 04:32 Straight cath inserted, using sterile technique, 16 Fr. Specimen obtained. Returned rv cloudy urine. Patient tolerated. 04:37 X-ray(s) taken. lp1 04:52 XRAY Chest (1 view) In Process Unspecified. EDMS 05:19 Patient moved back from CT. lp1 05:42 CT Head Brain wo Cont In Process Unspecified. EDMS 05:44 CT Chest W/ Con In Process Unspecified. EDMS 06:25 Billy Bruce MD is Hospitalizing Provider. tony 07:01 Primary Nurse role handed off by Tello Espino, GARETH bp 07:01 Keyshawn Reyes, RN is Primary Nurse. bp 08:30 No provider procedures requiring assistance completed. Patient admitted, IV remains in bp place. Administered Medications: 03:45 Drug: NS 0.9% (30 ml/kg) 30 ml/kg Route: IV; Rate: bolus; Site: right antecubital; rv 08:45 Follow up: IV Status: Completed infusion; IV Intake: 2300ml bp 03:50 Drug: Rocephin 2 grams Route: IV; Rate: per protocol; Site: right antecubital; rv 04:00 Follow up: IV Status: Completed infusion rv 04:00 Drug: Zithromax 500 mg Route: IVPB; Infused Over: 1 hrs; Site: left forearm; rv 05:40 Follow up: IV Status: Completed infusion; IV Intake: 250ml lp1 06:25 Follow up: IV Status: Completed infusion; IV Intake: 250ml rv 04:00 Drug: Tylenol 1000 mg Route: PO; rv 05:59 Follow up: Response: Temperature is decreased lp1 06:24 Drug: NS 0.9% 1000 ml Route: IV; Rate: 1 bolus; Site: right antecubital; rv 08:45 Follow up: IV Status: Completed infusion; IV Intake: 1000ml bp Intake: 05:40 IV: 250ml; Total: 250ml. lp1 06:25 IV: 250ml; Total: 500ml. rv 08:45 IV: 1000ml; Total: 1500ml. bp 08:45 IV: 2300ml; Total: 3800ml. bp Outcome: 06:27 Decision to Hospitalize by Provider. tony 08:43 Admitted to Tele accompanied by tech, via wheelchair, room 413, with chart, Report bp called to [facility] 08:43 Condition: stable 08:43 Instructed on the need for admit. 09:04 Patient left the ED. bp Signatures: Dispatcher [employer] EDKlaus Pickering MD MD cha Williams, Irene, RN GARETH iw Charlee Napier RN RN lp1 Keyshawn Reyes RN RN bp Tello Espino, GARETH RN rv Corrections: (The following items were deleted from the chart) 06:24 06:24 IV Status: Completed infusion; IV Intake: 250ml rv rv 07:26 07:04 BP 95 / 58; Pulse 90bpm; Resp 19bpm; Pulse Ox 98%; bp bp
--- NOTE | 2019-08-25 06:28 | EDPHYS ---
Physician Documentation [facility] Name: Rosario Jorge Age: 64 yrs Sex: Female : 1955 Arrival Date: 08/25/2019 Time: 03:37 Bed 30 Private MD: MAL Physician Klaus Frazier HPI: 08/24 03:56 This 64 yrs old Female presents to ER via Unassigned with complaints of fever tony and ams. 03:56 fever, weakness. The patient presents with confusion. Onset: The symptoms/episode tony began/occurred 3 day(s) ago. Possible causes: unknown. Associated signs and symptoms: Pertinent positives: dizziness, lightheadedness, shortness of breath, weakness. The patient reports fever, that was measured at 103.4 degrees Fahrenheit. Patient's baseline: Neuro: alert and fully oriented. Historical: - Allergies: 04:15 Sulfa (Sulfonamide Antibiotics); lp1 04:26 GRISEOFULVIN; lp1 04:26 Mefloquine; lp1 04:26 Imitrex; lp1 04:26 Minocycline; lp1 04:26 NSAIDS; lp1 04:26 Rifampin; lp1 04:26 Tizanidine; lp1 - Home Meds: 04:26 Unable to obtain [Active]; lp1 - PMHx: 04:15 COPD; lp1 04:26 Osteoporosis; celiac disease; colitis; Rheumatoid Arthritis; lp1 - PSHx: 04:26 Appendectomy; carpel tunnel; sinus surgery; partial hysterectomy; Bladder suspension; lp1 thyroid surgery; - Immunization history:: Adult Immunizations up to date. - Family history:: not pertinent. - Social history:: Smoking status: Patient denies any tobacco usage or history of. ROS: 03:56 Eyes: Negative for injury, pain, redness, and discharge, ENT: Negative for injury, tony pain, and discharge, Neck: Negative for injury, pain, and swelling, Cardiovascular: Negative for chest pain, palpitations, and edema, Abdomen/GI: Negative for abdominal pain, nausea, vomiting, diarrhea, and constipation, Back: Negative for injury and pain, : Negative for injury, bleeding, discharge, and swelling, MS/Extremity: Negative for injury and deformity, Skin: Negative for injury, rash, and discoloration, Psych: Negative for depression, anxiety, suicide ideation, homicidal ideation, and hallucinations, Allergy/Immunology: Negative for hives, rash, and allergies, Endocrine: Negative for neck swelling, polydipsia, polyuria, polyphagia, and marked weight changes, Hematologic/Lymphatic: Negative for swollen nodes, abnormal bleeding, and unusual bruising. 03:56 Constitutional: Positive for body aches, fatigue, fever, malaise, poor PO intake. 03:56 ENT: Positive for sore throat. 03:56 Respiratory: Positive for cough, with no reported sputum. Exam: 03:56 Head/Face: Normocephalic, atraumatic. Eyes: Pupils equal round and reactive to light, tony extra-ocular motions intact. Lids and lashes normal. Conjunctiva and sclera are non-icteric and not injected. Cornea within normal limits. Periorbital areas with no swelling, redness, or edema. Neck: Trachea midline, no thyromegaly or masses palpated, and no cervical lymphadenopathy. Supple, full range of motion without nuchal rigidity, or vertebral point tenderness. No Meningismus. Chest/axilla: Normal chest wall appearance and motion. Nontender with no deformity. No lesions are appreciated. Cardiovascular: Regular rate and rhythm with a normal S1 and S2. No gallops, murmurs, or rubs. Normal PMI, no JVD. No pulse deficits. Respiratory: Lungs have equal breath sounds bilaterally, clear to auscultation and percussion. No rales, rhonchi or wheezes noted. No increased work of breathing, no retractions or nasal flaring. Abdomen/GI: Soft, non-tender, with normal bowel sounds. No distension or tympany. No guarding or rebound. No evidence of tenderness throughout. Back: No spinal tenderness. No costovertebral tenderness. Full range of motion. Female : Normal external genitalia. Skin: Warm, dry with normal turgor. Normal color with no rashes, no lesions, and no evidence of cellulitis. MS/ Extremity: Pulses equal, no cyanosis. Neurovascular intact. Full, normal range of motion. Psych: Awake, alert, with orientation to person, place and time. Behavior, mood, and affect are within normal limits. 03:56 Constitutional: The patient appears febrile. 03:56 Cardiovascular: Rate: tachycardic, Rhythm: regular, Pulses: Pulses are 4+ in bilateral radial, brachial, femoral, popliteal, posterior tibial and and dorsalis pedis arteries.. Heart sounds: normal, Edema: is not appreciated, JVD: is not appreciated. 04:01 Neck: ROM/movement: no acute changes, limited range of motion, is not appreciated, tony Meningeal signs: are not present, Kernig's sign is negative, Brudzinski's sign is negative, nuchal rigidity, is not appreciated. 05:17 Musculoskeletal/extremity: ROM: full active range of motion, full passive range of tony motion, Circulation is intact in all extremities. Sensation intact. Compartment Syndrome exam of affected extremity: is normal. Weight bearing: able to fully bear weight, DVT Exam: No signs of deep vein thrombosis. no pain, no swelling, no tenderness, negative Homans' sign noted on exam, no appreciated bluish discoloration, no erythema, no increased warmth. Vital Signs: 03:25 BP 116 / 64; Pulse 113; Resp 26; Temp 103.2(O); Pulse Ox 97% on R/A; Weight 78.02 kg lp1 (R); Height 5 ft. 4 in. (162.56 cm); 03:45 BP 113 / 62; Pulse 115; Resp 15; Pulse Ox 97% on R/A; lp1 04:00 BP 117 / 63; Pulse 112; Resp 21; Pulse Ox 94% on R/A; lp1 04:30 BP 104 / 57; Pulse 105; Resp 19; Pulse Ox 98% on R/A; rv 05:00 BP 92 / 50; Pulse 99; Resp 18; Pulse Ox 99% on R/A; rv 05:30 BP 92 / 49; Pulse 93; Resp 19; Pulse Ox 98% on R/A; rv 05:59 Temp 99.7(O); lp1 06:00 BP 95 / 50; Pulse 88; Resp 17; Pulse Ox 95% on R/A; rv 06:30 BP 94 / 55; Pulse 89; Resp 18; Pulse Ox 96% on R/A; rv 07:04 BP 95 / 58; Pulse 90; Resp 19; Temp 99.5; Pulse Ox 98% ; bp 08:00 BP 96 / 62; Pulse 87; Resp 20; Pulse Ox 94% ; bp 08:46 BP 107 / 63; Pulse 83; Resp 18; Temp 99.3; Pulse Ox 95% ; bp 03:25 Body Mass Index 29.52 (78.02 kg, 162.56 cm) lp1 Hobbs Coma Score: 04:28 Eye Response: spontaneous(4). Verbal Response: confused(4). Motor Response: obeys rv commands(6). Total: 14. Procedures: 05:35 Lumbar Puncture: Patient placed in left lateral decubitus position. Collected 20 ml's tony of Puncture site dressed with band aid, Patient tolerated well. MDM: 03:43 Patient medically screened. [facility] 04:00 Data reviewed: vital signs, nurses notes, lab test result(s), EKG, radiologic studies, [facility] CT scan, plain films. 08/24 03:56 Order name: Basic Metabolic Panel [facility] 08/24 03:56 Order name: CBC with Diff [facility] 08/24 03:56 Order name: LFT's [facility] 08/24 03:56 Order name: Magnesium [facility] 08/24 03:56 Order name: NT PRO-BNP [facility] 08/24 03:56 Order name: PT-INR [facility] 08/24 03:56 Order name: Troponin (emerg Dept Use Only) [facility] 08/24 03:56 Order name: Amylase, Serum; Complete Time: 04:50 [facility] 08/24 03:56 Order name: Blood Culture Adult (2) [facility] 08/24 03:56 Order name: Ckmb; Complete Time: 04:50 [facility] 08/24 03:56 Order name: CPK; Complete Time: 04:50 [facility] 08/24 03:56 Order name: Lactate; Complete Time: 04:50 [facility] 08/24 03:56 Order name: Lipase; Complete Time: 04:50 [facility] 08/24 03:56 Order name: Procalcitonin; Complete Time: 05:16 [facility] 08/24 03:56 Order name: Ptt, Activated; Complete Time: 04:50 [facility] 08/24 03:56 Order name: Urine Microscopic Only; Complete Time: 04:50 [facility] 08/24 03:56 Order name: Urine Culture [facility] 08/24 03:56 Order name: Influenza Screen (a \T\ B); Complete Time: 04:50 [facility] 08/24 03:56 Order name: Strep; Complete Time: 04:50 [facility] 08/24 03:56 Order name: COVID-19 [facility] 08/24 03:56 Order name: Basic Metabolic Panel; Complete Time: 04:50 EDMS 08/24 03:56 Order name: CBC with Automated Diff; Complete Time: 05:16 [facility]MS 08/24 03:56 Order name: Liver (Hepatic) Function; Complete Time: 04:50 [facility]MS 08/24 03:56 Order name: Magnesium; Complete Time: 04:50 EDMS 08/24 03:56 Order name: NT PRO-BNP; Complete Time: 04:50 EDMS 08/24 03:56 Order name: Protime (+INR); Complete Time: 04:50 EDMS 08/24 03:56 Order name: Troponin (Emerg Dept Use Only); Complete Time: 04:50 EDMS 08/24 04:05 Order name: Glucose, Ancillary Testing; Complete Time: 04:13 EDMS 08/24 04:24 Order name: Urine Dipstick--Ancillary (enter results); Complete Time: 04:50 mw2 08/24 04:44 Order name: Throat Culture [facility]MS 08/24 03:56 Order name: XRAY Chest (1 view) [facility] 08/24 03:56 Order name: EKG; Complete Time: 03:57 [facility] 08/24 03:56 Order name: Cardiac monitoring; Complete Time: 04:17 [facility] 08/24 03:56 Order name: EKG - Nurse/Tech; Complete Time: 04:17 [facility] 08/24 03:56 Order name: IV Saline Lock; Complete Time: 04:17 [facility] 08/24 03:56 Order name: Labs collected and sent; Complete Time: 04:17 [facility] 08/24 03:56 Order name: O2 Per Protocol; Complete Time: 04:17 [facility] 08/24 03:56 Order name: O2 Sat Monitoring; Complete Time: 04:16 [facility] 08/24 03:56 Order name: Accucheck; Complete Time: 04:17 [facility] 08/24 03:56 Order name: IV Saline Lock - Large Bore; Complete Time: 04:31 [facility] 08/24 03:56 Order name: Urine Dipstick-Ancillary (obtain specimen); Complete Time: 04:31 [facility] 08/24 04:01 Order name: CT Head Brain wo Cont [facility] 08/24 04:52 Order name: CT Chest W/ Con [facility] 08/24 05:04 Order name: Manual Differential; Complete Time: 05:16 EDMS 08/24 05:31 Order name: Lumbar Puncture Setup; Complete Time: 05:59 [facility] 08/24 05:31 Order name: Lumbar Puncture Consent; Complete Time: 06:52 [facility] 08/24 05:31 Order name: Spinal Fluid Profile; Complete Time: 07:25 [facility] 08/24 06:35 Order name: Lactate; Complete Time: 07:00 EDMS 08/24 06:49 Order name: Regular EDMS 08/24 06:49 Order name: CBC with Automated Diff EDMS 08/24 06:49 Order name: Lipid Profile EDMS 08/24 06:49 Order name: Lipid Profile EDMS 08/24 06:59 Order name: Body Fluid Cell Count; Complete Time: 07:25 EDMS Administered Medications: 03:45 Drug: NS 0.9% (30 ml/kg) 30 ml/kg Route: IV; Rate: bolus; Site: right antecubital; rv 08:45 Follow up: IV Status: Completed infusion; IV Intake: 2300ml bp 03:50 Drug: Rocephin 2 grams Route: IV; Rate: per protocol; Site: right antecubital; rv 04:00 Follow up: IV Status: Completed infusion rv 04:00 Drug: Zithromax 500 mg Route: IVPB; Infused Over: 1 hrs; Site: left forearm; rv 05:40 Follow up: IV Status: Completed infusion; IV Intake: 250ml lp1 06:25 Follow up: IV Status: Completed infusion; IV Intake: 250ml rv 04:00 Drug: Tylenol 1000 mg Route: PO; rv 05:59 Follow up: Response: Temperature is decreased lp1 06:24 Drug: NS 0.9% 1000 ml Route: IV; Rate: 1 bolus; Site: right antecubital; rv 08:45 Follow up: IV Status: Completed infusion; IV Intake: 1000ml bp Disposition: 08/25/19 06:27 Hospitalization ordered by Billy Bruce for Inpatient Admission. Preliminary diagnosis are Fever, unspecified, Pneumonia due to other specified bacteria - left lower lobe, GGO, Altered mental status, unspecified, Hypoxemia, Elevated white blood cell count. - Bed requested for Telemetry/MedSurg (Inpatient). - Status is Inpatient Admission. bp - Condition is Fair. - Problem is new. - Symptoms have improved. Signatures: Dispatcher [employer] EDValerie Broderick RN RN dw Anderson, Corey, MD MD cha Pena, Charlee, RN RN lp1 Keyshawn Reyes, RN RN bp Tello Espino, RN RN rv Corrections: (The following items were deleted from the chart) 06:27 Hospitalization Ordered by Billy Bruce MD for Inpatient Admission. [facility] Preliminary diagnosis is Fever, unspecified; Pneumonia due to other specified bacteria - left lower lobe, GGO; Altered mental status, unspecified. Bed requested for Telemetry/MedSurg (Inpatient). Status is Inpatient Admission. Condition is Fair. Problem is new. Symptoms have improved. [facility] 08:22 06:28 08/25/2019 06:27 Hospitalization Ordered by Billy Bruce MD for Inpatient dw Admission. Preliminary diagnosis is Fever, unspecified; Pneumonia due to other specified bacteria - left lower lobe, GGO; Altered mental status, unspecified; Hypoxemia; Elevated white blood cell count. Bed requested for Telemetry/MedSurg (Inpatient). Status is Inpatient Admission. Condition is Fair. Problem is new. Symptoms have improved. [facility] 09:04 08:22 08/25/2019 06:27 Hospitalization Ordered by Billy Bruce MD for Inpatient bp Admission. Preliminary diagnosis is Fever, unspecified; Pneumonia due to other specified bacteria - left lower lobe, GGO; Altered mental status, unspecified; Hypoxemia; Elevated white blood cell count. Bed requested for Telemetry/MedSurg (Inpatient). Status is Inpatient Admission. Condition is Fair. Problem is new. Symptoms have improved.
[2019-08-25 06:55] LABS: CSF Glucose 70 mg/dL (40-70)
[2019-08-25 07:05] LABS: Appearance CLEAR (CLEAR); Body Fluid Source CSF; Body Fluid WBC 3 /mm^3; Color of fluid Colorless (COLORLESS)
[2019-08-25 07:06] LABS: Appearance CLEAR (CLEAR); Body Fluid Source CSF; Body Fluid WBC 2 /mm^3; Color of fluid Colorless (COLORLESS); Fluid Total Volume CSF ml
[2019-08-25] MEDS ORDERED: AZITHROMYCIN IV 500 MG in NA CHLORIDE 0.9% 250 ML IVPB SCH (09:00)
[2019-08-25] MEDS ORDERED: CEFTRIAXONE 1 GM/NS 50 ML 1 GM/50 ML BAG IV SCH (09:00)
--- NOTE | 2019-08-25 10:08 | P.HP ---
Certification for Inpatient Patient admitted to: Observation With expected LOS: <2 Midnights Patient will require the following post-hospital care: None Practitioner: I am a practitioner with admitting privileges, knowledge of patient current condition, hospital course, and medical plan of care. Services: Services provided to patient in accordance with Admission requirements found in Title 42 Section 412.3 of the Code of Federal Regulations Patient History Date of Service: 08/25/19 (Hospitalist) History of Present Illness: c/o pain in r shoulder 2 days. Incoherant . lost track of time. Last night slept in chair. Slept till midnight. Pt couldn't stand easily. Bath room to Bed room. notice AMS. concerned about stroke [place] hot Allergies adhesive tape Allergy (Verified 09/25/17 01:41) Itching/Hives/Rash griseofulvin Allergy (Verified 09/25/17 01:41) Hives/Rash mefloquine [From Lariam] Allergy (Verified 09/25/17 01:41) Hives/Rash Sulfa (Sulfonamide Antibiotics) Allergy (Verified 09/25/17 00:33) Itching/Hives/Rash sumatriptan [From Imitrex] Allergy (Verified 09/25/17 01:41) Shortness of breath [id number] Antimigraine Agents Allergy (Verified 09/25/17 01:41) Shortness of breath minocycline Adverse Reaction (Verified 09/25/17 01:41) Nausea/Vomiting NSAIDS (Non-Steroidal Anti-Inflamma Adverse Reaction (Verified 09/25/17 01:41) Nausea/Vomiting rifampin Adverse Reaction (Verified 09/25/17 01:41) Nausea/Vomiting tizanidine [From Zanaflex] Adverse Reaction (Verified 09/25/17 01:41) Nausea/Vomiting Home Medications: ALPRAZolam [Alprazolam] 1 tab PO BID PRN 09/25/17 Adalimumab [Humira 40 MG/0.8 ML*] 1 alok SQ Q10D 09/25/17 B12/Levomefolate Calcium/B-6 [Foltx Tablet] 1 each PO DAILY 09/25/17 Colesevelam HCl [Welchol] 4 tab PO DAILY 09/25/17 Cyclobenzaprine [Flexeril*] 10 mg PO BEDTIME PRN 09/25/17 Cyproheptadine HCl 4 ml PO BID 09/25/17 Diphenox/Atropine [Lomotil*] 1 tab PO DAILY 09/25/17 Hydrocodone 10/APAP 325 [[place] 10/325*] 1 tab PO Q6H PRN 09/25/17 Levothyroxine [Synthroid*] 1 tab PO DAILY 09/25/17 Ondansetron [Zofran (Odt)*] 4 mg PO Q6H PRN 09/25/17 Vit D3/Folic Acid/B2/B6/B12 [Folgard Tablet] 1 each PO DAILY 09/25/17 Zolpidem Tartrate [Zolpidem Tartrate ER] 12.5 mg PO BEDTIME 09/25/17 clonazePAM [Klonopin] 1 mg PO QID 09/25/17 - Past Medical/Surgical History Diabetic: No -: resolved resistant staph infection 3.5 years ago -: celiac disease -: osteoporosis -: rheumatoid arthritis -: colitis -: frequent UTIs -: carpal tunnel -: bilateral broken wrist -: appendectomy 1997 -: lap ovarian cyst rupture 1988 -: sinus sx-partial ethmoidectomy, purvi bullosa 1991 -: left ACL repair -: partial hysterectomy -: thyroid surgery -: bladder suspension and rectal repair -: carpal tunnel repair - Family History Mother -: Heart disease, GI disease, Cancer, Other (see notes) Notes: IBS Father -: Heart disease - Social History Alcohol use: Yes CD- Drugs: No Caffeine use: No Review of Systems General: Weakness Musculoskeletal: Shoulder Pain Physical Examination - Vital Signs Temperature: 99.3 F Blood Pressure: 107/63 Pulse: 83 Respirations: 18 - Physical Exam General: Alert, In no apparent distress, Oriented x3 Neck: Supple Respiratory: Clear to auscultation bilaterally Cardiovascular: No edema, Regular rate/rhythm Gastrointestinal: Normal bowel sounds, Soft and benign Musculoskeletal: No clubbing, No swelling Neurological: Normal speech - Studies Laboratory Data (last 24 hrs) 08/25/19 03:40: PT 11.1, INR 0.94, APTT 34.4 08/25/19 03:40: WBC 14.5 H, Hgb 13.0, Hct 39.2, Plt Count 245 08/25/19 03:40: Sodium 139, Potassium 4.1, BUN 13, Creatinine 1.01, Glucose 127 H, Magnesium 1.8, Total Bilirubin 0.3, AST 20, ALT 19, Alkaline Phosphatase 67, Amylase 25, Lipase 76 Microbiology Data (last 24 hrs): 08/25/19 03:45 Blood - Blood Anaerobic Blood Culture - Final 08/25/19 03:55 Nasopharnyx Influenza Type A Antigen Screen - Final 08/25/19 03:55 Nasopharnyx Influenza Type B Antigen Screen - Final 08/25/19 03:55 Throat Group A Streptococcus Rapid Screen - Final Assessment and Plan - Problems (Diagnosis) (1) Altered mental status Current Visit: Yes Status: Acute Plan: Patient is 64 years of age the right rotator cuff operation end of June wing well apparently she has some more pain took more hydrocodone then the found her difficult to awake prior to admission he felt immune a stroke had some slurred speech the time of my examination she is alert responsive a little distressed being in the hospital some discomfort in her shoulders the was no other neurological issues cranial nerves grossly normal lower extremities grossly normal she is not being out she has melissa been wearing a mass is been no exposure to patients with coal weighed borderline temp since admission lumbar puncture CT scan was also done that was negative minor interstitial changes on the CT scan white count is mildly elevated chemistries unremarkable pro calcitonin level is negative will observe possible discharge tomorrow discuss with the Qualifiers: Altered mental status type: transient alteration of awareness Qualified Code(s): R40.4 - Transient alteration of awareness - Advance Directives Does patient have a Living Will: Yes Does patient have a Durable POA for Healthcare: Yes
--- NOTE | 2019-08-25 11:41 | RAD REPORT ---
EXAM DESCRIPTION: Anitra Single View08/25/2019 4:52 am CLINICAL HISTORY: Cough COMPARISON: 2018 FINDINGS: Mild left basilar opacity. The right lung appears clear of acute infiltrate. The heart is normal size IMPRESSION: Mild left basilar opacity may indicate a mild pneumonia
[2019-08-25] MEDS: HYDROCODONE/APAP 10/325 TAB PO PRN ×2 (12:20→19:27)
[2019-08-25] MEDS: CEFTRIAXONE/SWI 1gm 1 GM/10 ML SYR IVP SCH (12:20)
--- NOTE | 2019-08-25 12:31 | RAD REPORT ---
EXAM DESCRIPTION: CT - Thorax W/ Con - 08/25/2019 5:44 am CLINICAL HISTORY: The patient is 64 years old and is Female; pna TECHNIQUE: Axial computed tomography images of the chest with intravenous contrast. Sagittal and c oronal reformatted images were created and reviewed. This CT exam was performed using one or more o f the following dose reduction techniques: automated exposure control, adjustment of the mA and/or kV according to patient size, and/or use of iterative reconstruction technique. COMPARISON: No relevant prior studies available. FINDINGS: LUNGS: Minimal dependent densities in the lung bases are present. Subtle groundglass o pacity within the left lower lobe is noted. Minimal dependent densities in the lung bases is present. PLEURAL SPACE: Unremarkable. No pneumothorax. No significant effusion. HEART: No cardiomegaly. No pericardial effusion. BONES/JOINTS: No acute fracture. SOFT TISSUES: The soft tissues are normal. VASCULATURE: Unremarkable. No thoracic aortic aneurysm. LYMPH NODES: Unremarkable. No enlarged lymph nodes. LIVER: The liver is diffusely fatty. GALLBLADDER AND BILE DUCTS: Surgical clips are present in the right upper quadrant, consistent w ith previous cholecystectomy. ADRENALS: A 1.9 cm heterogeneous left adrenal gland nodule measuring 29 Hounsfield unit is prese nt. IMPRESSION: 1. Subtle groundglass opacity in the left lower lobe which may be secondary to develop ing infiltrate. 2. Left adrenal gland nodule. Findings likely represent adenoma. One-year follow-up adrenal washout CT is recommended. If stable for greater than or equal to 1 year, no further follow-up imaging recom mended. Electronically signed by: Janelle Lunsford MD 08/25/2019 5:57 AM CDT Due to temporary technical issues with the PACS/Fluency reporting system, reports are being signed by the in house radiologist as a courtesy to ensure prompt reporting. The interpreting radiologist is f ully responsible for the content of the report.
--- NOTE | 2019-08-25 12:32 | RAD REPORT ---
EXAM DESCRIPTION: CT - Head Brain Wo Cont - 08/25/2019 5:41 am CLINICAL HISTORY: The patient is 64 years old and is Female; MENTAL STATUS CHANGE TECHNIQUE: Axial computed tomography images of the head/brain without intravenous contrast. Sagitt al and coronal reformatted images were created and reviewed. This CT exam was performed using one o r more of the following dose reduction techniques: automated exposure control, adjustment of the mA and/or kV according to patient size, and/or use of iterative reconstruction technique. COMPARISON: No relevant prior studies available. FINDINGS: BRAIN: Unremarkable. The rendon-white matter differentiation is preserved . No hemorrhag e. No significant white matter disease. No edema. No extra-axial fluid collections. VENTRICLES: Unremarkable. No ventriculomegaly. BONES/JOINTS: No acute fracture. SOFT TISSUES: Unremarkable. SINUSES: Unremarkable as visualized. No acute sinusitis. MASTOID AIR CELLS: Unremarkable as visualized. No mastoid effusion. ORBITS: Unremarkable as visualized. IMPRESSION: No acute intracranial findings. Electronically signed by: Janelle Lunsford MD 08/25/2019 5:47 AM CDT Due to temporary technical issues with the PACS/Fluency reporting system, reports are being signed by the in house radiologist as a courtesy to ensure prompt reporting. The interpreting radiologist is f ully responsible for the content of the report.
[2019-08-25 14:05] VITALS: BMI 29.4
[2019-08-25] MEDS ORDERED: PNEUMOCOCCAL VACCINE 0.5 ML IMVAC ONE (15:00)
[2019-08-25] MEDS ORDERED: MAGNESIUM SULFATE 1 gm IVPB 1 GM/100 ML BAG IV ONE (16:00)
[2019-08-25] MEDS ORDERED: CEFTRIAXONE/SWI 1gm 1 GM/10 ML SYR IV SCH (21:00)
[2019-08-26] MEDS: HYDROCODONE/APAP 10/325 TAB PO PRN ×2 (03:57→09:35)
[2019-08-26 05:48] LABS: Absolute Lymphocytes (CBC) 2.5 K/uL (0.7-4.9); Basophils % 0.6 % (0-1.3); Hematocrit 33.9 % (36.0-45.0); Lymphocytes % 34.6 % (15.3-44.8); MPV 9.5 fL (7.6-11.3); RBC Red Blood Cell Count 3.58 M/uL (3.86-4.86)
[2019-08-26 06:25] LABS: Magnesium 2.4 mg/dL (1.8-2.4); Phosphorus 2.9 mg/dL (2.5-4.9); Potassium 3.6 mmol/L (3.5-5.1)
[2019-08-26] MEDS: CEFTRIAXONE/SWI 1gm 1 GM/10 ML SYR IVP SCH (07:01)
--- NOTE | 2019-08-26 07:23 | EKG ---
Test Date: 2019-08-25 Test Time: 03:40:34 Senior Net Software Engineer: [employer] MEASUREMENT RESULTS: Intervals: Rate: 112 [place]: 156 QRSD: 76 QT: 326 QTc: 444 [place]: P: 52 [place]: 156 QRS: 64 T: 69 INTERPRETIVE STATEMENTS: Sinus tachycardia Otherwise normal ECG Compared to ECG 09/24/2017 21:27:31 Sinus rhythm no longer present Electronically Signed On 08-26-19 07:22:10 CDT by Trenton Palafox
[2019-08-26] MEDS ORDERED: POTASSIUM CL SA 10 MEQ TAB PO ONE (09:00)
[2019-08-26 12:07] VITALS: BP 119/65; TEMP 98.2; O2SAT 98
--- NOTE | 2019-08-26 12:42 | P.DS ---
Admission Date: 08/26/19 (Hospitalist) Discharge Date: 08/26/19 Disposition: ROUTINE DISCHARGE Discharge Condition: FAIR - Problems (1) Altered mental status Current Visit: Yes Status: Acute Qualifiers: Altered mental status type: transient alteration of awareness Qualified Code(s): R40.4 - Transient alteration of awareness Brief History of Present Illness: c/o pain in r shoulder 2 days. Incoherant . lost track of time. Last night slept in chair. Slept till midnight. Pt couldn't stand easily. Bath room to Bed room. notice AMS. concerned about stroke [place] [facility] Hospital Course: Patient is 64 years of age admitted with altered mental status no fever since admission apparently she had taken the pain medications patient had surgery own a rotator cuff the end of June she did undergo a lumbar puncture in the emergency room the head and chest CT scans patient has no evidence of sepsis all culture tests a negative including the CSF patient instructed to remain in self isolation until the jarrell virus tests are back he appears to be at low risk patient denies any pulmonary complaints at the time of discharge patient alert oriented responsive cooperative no complaint saturation vital signs all studies factor Vital Signs/Physical Exam: Temp Pulse Resp BP Pulse Ox 98.2 F 74 18 119/65 98 08/26/19 12:00 08/26/19 12:00 08/26/19 12:00 08/26/19 12:00 08/26/19 12:00 Laboratory Data at Discharge: WBC 7.1 K/uL (4.3-10.9) D 08/26/19 05:05 Hgb 11.5 g/dL (12.0-15.0) L 08/26/19 05:05 Hct 33.9 % (36.0-45.0) L 08/26/19 05:05 Plt Count 217 K/uL (152-406) 08/26/19 05:05 PT 11.1 SECONDS (9.5-12.5) 08/25/19 03:40 INR 0.94 08/25/19 03:40 APTT 34.4 SECONDS (24.3-36.9) 08/25/19 03:40 Sodium 143 mmol/L (136-145) 08/26/19 05:05 Potassium 3.6 mmol/L (3.5-5.1) 08/26/19 05:05 BUN 10 mg/dL (7-18) 08/26/19 05:05 Creatinine 0.71 mg/dL (0.55-1.3) 08/26/19 05:05 Glucose 115 mg/dL (74-106) H 08/26/19 05:05 Phosphorus 2.9 mg/dL (2.5-4.9) 08/26/19 05:05 Magnesium 2.4 mg/dL (1.8-2.4) D 08/26/19 05:05 Total Bilirubin 0.3 mg/dL (0.2-1.0) 08/25/19 03:40 AST 20 U/L (15-37) 08/25/19 03:40 ALT 19 U/L (12-78) 08/25/19 03:40 Alkaline Phosphatase 67 U/L (45-117) 08/25/19 03:40 Triglycerides 147 mg/dL (<150) 08/26/19 05:05 Cholesterol 153 mg/dL (<200) 08/26/19 05:05 HDL Cholesterol 55 mg/dL (40-60) 08/26/19 05:05 Cholesterol/HDL Ratio 2.78 08/26/19 05:05 Amylase 25 U/L (25-115) 08/25/19 03:40 Lipase 76 U/L (73-393) 08/25/19 03:40 Home Medications: ALPRAZolam [Alprazolam] 1 mg PO TID PRN 09/25/17 Adalimumab [Humira 40 MG/0.8 ML*] 1 alok SQ Q10D 09/25/17 Cyclobenzaprine [Flexeril*] 10 mg PO DAILY PRN 09/25/17 Diphenox/Atropine [Lomotil*] 1 tab PO DAILY PRN 09/25/17 Hydrocodone 10/APAP 325 [[place] 10/325*] 1 tab PO Q3H PRN 09/25/17 Ondansetron [Zofran (Odt)*] 8 mg PO Q6H PRN 09/25/17 clonazePAM [Klonopin] 1 mg PO QID 09/25/17 Cevimeline HCl 1 tab PO SEECOM 08/25/19 Cyanocobalamin (Vitamin B-12) [Vitamin B-12] 5,000 mcg SL DAILY 08/25/19 Cyproheptadine HCl 2 mg PO BID 08/25/19 D-Mannose 1,500 mg PO BID 08/25/19 Diphenox/Atropine [Lomotil*] 1 tab PO SEECOM PRN 08/25/19 Estradiol [Estrace] 1 g TOP SEECOM 08/25/19 Guaifenesin [Mucinex] 1 tab PO BID 08/25/19 Levocetirizine Dihydrochloride [Xyzal] 5 mg PO DAILY 08/25/19 Spironolactone 25 mg PO DAILY 08/25/19 Tramadol HCl [Ultram] 50 mg PO Q8HP PRN 08/25/19 Zolpidem Tartrate 10 mg PO BEDTIME 08/25/19 Budesonide/Formoterol Fumarate [Symbicort 80-4.5 Mcg Inhaler] 2 puff IH BID 08/26/19 Sucralfate [Carafate*] 5 ml PO Q6HP PRN 08/26/19 Patient Discharge Instructions: Patient to resume all her home medications and follow up with the primary care physician isolation until we have jarrell virus test test back Diet: Regular Activity: Ad rell
== END 2019-08-26 13:55 | disposition home or self-care (01) | DRG 884 ==
LOC: ER 03:28 → SUPCPDRO 03:28 → ERHOLD 06:43 → 4TH 08:44 → OBSVTOIN 08-26 07:51
PROVIDERS: ADMIT Internal Medicine Sleep Medicine; ATTEND Internal Medicine Sleep Medicine
PROC: 009U3ZZ Drainage of Spinal Canal, Percutaneous Approach (ICD-10-PCS; principal; 2019-08-26)
PROC: 8E0ZXY6 Isolation (ICD-10-PCS; 2019-08-26)
DX: R40.4 Transient alteration of awareness (principal); M25.511 Pain in right shoulder; Z79.891 Long term (current) use of opiate analgesic; Z79.899 Other long term (current) drug therapy; Z88.1 Allergy status to other antibiotic agents; Z88.8 Allergy status to other drugs, medicaments and biological substances; Z91.048 Other nonmedicinal substance allergy status; Z79.890 Hormone replacement therapy; Z90.49 Acquired absence of other specified parts of digestive tract; Z20.828 Contact with and (suspected) exposure to other viral communicable diseases; Z90.711 Acquired absence of uterus with remaining cervical stump
CPT/HCPCS: 36415; 51702; 62270; 70450; 71045; 71260; 80048; 80061; 80076; 81003; 81015; 82150; 82550; 82553; 82945; 82947; 83605; 83690; 83735; 83880; 84100; 84145; 84157; 84484; 85025; 85610; 85730; 87040; 87070; 87081; 87086; 87088; 87205; 87804; 89050; 93005; 94760; 96361; 96365; 96366; 96375; 99285; G0378; J0456; J0696; J3475; J7030; Q9967; U0001

== ENCOUNTER 2019-09-16 16:43 | Emergency (ER) | payer OTHER ==
--- OUTSIDE RECORDS SUMMARY | 2019-09-16 16:46 | XMS REPORT ---
:1955 Author Organization [facility] t Address [address] [place] [address] Care Team Providers Name Role Phone Unavailable [...] Name: BERNARD MARCUS CONT RT Unit No: [id number] EXAMS: CPT CODE: [id number] MR I UP JNT W/[place] [id number] MR of the right shoulder without contrast [...] Technologist : GILMA BOYLE RT(R) Transcribed D/T: ([id number]) [facility] NAME: BERNARD KING [address] [facility] PHYS: Bahman Akers OB: 1955 AGE: 63 SEX: F [place] [id number] A CCT NO: [id number] LOC: Y.MRI PHONE #: [phone] E XAM DATE: 07/04/2019 STATUS: DEP CLI FAX #: [phone] R AD #: [id number] D/C DT PAGE 1 Signed Report Pa tient Name: BERNARD KNIG Unit No: [id number] EXAMS: CPT CODE: [id number] MRI [place] JNT W/[place] [id number] <Continued> Orig Print D/T: S: 07/05/2019 (6401) [facility] NAME: BERNARD KING [address] [facility] PHYS: Bahman Akers OB: 1955 AGE: 63 SEX: F [place] [id number] A CCT NO: [id number] LOC: Y.MRI PHONE #: [phone] E XAM DATE: 07/04/2019 STATUS: DEP CLI FAX #: [phone] R AD #: [id number] D/C DT PAGE 2 Signed Report
[2019-09-16] MEDS ORDERED: MEPERIDINE HCL 25 MG/0.5 ML ONE (17:14)
[2019-09-16 17:26] LABS: Absolute Lymphocytes (CBC) 1.6 K/uL (0.7-4.9); Basophils % 0.4 % (0-1.3); Hematocrit 40.8 % (36.0-45.0); Lymphocytes % 15.2 % (15.3-44.8); MPV 9.1 fL (7.6-11.3); RBC Red Blood Cell Count 4.41 M/uL (3.86-4.86)
[2019-09-16 17:42] LABS: Potassium 4.1 mmol/L (3.5-5.1)
--- NOTE | 2019-09-16 18:20 | RAD REPORT ---
EXAM DESCRIPTION: CT - Chest Abdomen Pelvis W Cont - 09/16/2019 5:59 pm CLINICAL HISTORY: fall, left chest/flank/abd pain/back pain COMPARISON: No comparisons TECHNIQUE: Following dynamic enhancement using 100 milliliters nonionic IV contrast, axial imaging o f the chest, abdomen and pelvis was performed. Biphasic technique was utilized through the abdomen. Oral contrast was administered. All CT scans are performed using dose optimization technique as appropriate and may include automated exposure control or mA/KV adjustment according to patient size. FINDINGS: No pulmonary contusion or acute lung parenchymal process. No pleural effusion, pleural thi ckening or pneumothorax. No significant aortic or pulmonary arterial tree finding. Mediastinal and hi lar regions show no mass or abnormal lymphadenopathy. No chest wall mass or axillary lymphadenopathy. No displaced rib fracture or acute rib abnormality seen. The liver, spleen and pancreas show no suspicious findings. Cholecystectomy clips are present. No susanna iary tree abnormality. Gallstones can be occult on CT imaging. Symmetric renal function is seen with no mass or hydronephrosis. No adrenal abnormalities. No dilated bowel loops or focal bowel wall thickening. No acute GI findings seen. Fat only umbilical hernia present. No abdominal wall mass or hematoma. Lower lumbar facet joint degenerative changes are present. Scoliotic curvature is present. No acute c ompression fracture, pelvic fracture or significant bony injury seen. No significant vascular findings. IMPRESSION: CT chest, abdomen and pelvis imaging shows no acute or emergent finding.
--- NOTE | 2019-09-16 18:36 | ER ---
Nurse's Notes [facility] Name: Rosario Jorge Age: 64 yrs Sex: Female : 1955 Arrival Date: 09/16/2019 Time: 16:46 Bed 4 Private MD: Keyshawn Minor Diagnosis: Contusion of left back wall of thorax;Contusion of lower back and pelvis Presentation: 09/15 16:59 Chief complaint: Patient states: Fell on slippery surface early Monday morning. Hit her ll1 left side on boxes on the way down to the ground. Left sided trunk pain since. No head injury or LOC. No blood thinners. Coronavirus screen: Proceed with normal triage. Patient denies a cough. Patient denies shortness of breath or difficulty breathing. Patient denies measured and/or subjective temperature greater than 100.4F prior to today's visit. Patient denies travel on a cruise ship or to a country the [facility] currently lists as an affected area. Patient denies contact with known and/or suspected case of COVID-19. Ebola Screen: Patient denies travel to an Ebola-affected area in the 21 days before illness onset. Initial Sepsis Screen: Does the patient meet any 2 criteria? HR > 90 bpm. No. Patient's initial sepsis screen is negative. Does the patient have a suspected source of infection? No. Patient's initial sepsis screen is negative. Risk Assessment: Do you want to hurt yourself or someone else? Patient reports no desire to harm self or others. Onset of symptoms was September 15, 2019. 16:59 Method Of Arrival: Wheelchair ll1 16:59 Acuity: EMILIA 3 ll1 17:53 Care prior to arrival: None. Mechanism of Injury: Fall from standing position. Trauma sv event details: Injury occurred in the [facility], Injury occurred: at home. Injury occurred: September 16, 2019. Trauma Activation: Not Applicable Physician: ED Physician; Name: ; Notified At: ; Arrived At: Physician: General Surgeon; Name: ; Notified At: ; Arrived At: Physician: Radiology; Name: ; Notified At: ; Arrived At: Physician: Respiratory; Name: ; Notified At: ; Arrived At: Physician: Lab; Name: ; Notified At: ; Arrived At: Historical: - Allergies: 17:04 GRISEOFULVIN; ll1 17:04 Mefloquine; ll1 17:04 NSAIDS; ll1 17:04 Rifampin; ll1 17:04 Sulfa (Sulfonamide Antibiotics); ll1 17:04 Tizanidine; ll1 17:04 Minocycline; ll1 17:04 Imitrex; ll1 17:04 NSAIDS (Non-Steroidal Anti-Inflamma; ll1 17:04 adhesive tape; ll1 17:04 [id number] Antimigraine Agents; ll1 - PMHx: 17:04 Celiac Disease; Colitis; Osteoporosis; Rheumatoid Arthritis; COPD; ll1 - PSHx: 17:04 Appendectomy; sinus surgery; thyroid surgery; carpel tunnel; partial hysterectomy; ll1 Bladder suspension; rotator cuff repair; - Immunization history:: Adult Immunizations. - Social history:: Patient/guardian denies using alcohol, street drugs, tobacco products, Smoking status: Patient denies any tobacco usage or history of. - Family history:: not pertinent. - Hospitalizations: : No recent hospitalization is reported. Screenin:00 Fall Risk None identified. sv 17:02 Abuse screen: Denies threats or abuse. Denies injuries from another. Nutritional sv screening: No deficits noted. Tuberculosis screening: No symptoms or risk factors identified. Primary Survey: 16:59 NO uncontrolled hemorrhage observed. A: The patient is alert. Airway: patent, No sv supplemental oxygen in use on arrival. Oral cavity: clear, Trachea midline. Breathing/Chest: Respiratory pattern: regular, Respiratory effort: spontaneous, unlabored, Chest inspection: symmetrical rise and fall of the chest. Circulation: Pulses: palpable right radial artery and left radial artery. Skin color: pink, Skin temperature: warm, dry. Disability Alert. Exposure/Environment: All clothing and personal items were removed. Forensic evidence collection is not deemed to be indicated at this time. Items placed in patient belonging bag. There is no evidence of uncontrolled external bleeding. No obvious injuries are noted at this time. A warming method has been applied: A warm blanket has been provided to the patient. 17:30 Reassessment Airway Airway Patent Oxygen No O2 Oral cavity Clear Trachea Midline sv Breathing/Chest Respiratory pattern Regular Respiratory effort Spontaneous Unlabored Chest inspection Symmetrical Circulation Pulses Palpable Color [place] Temperature Warm Dry Disability Alert. Secondary Survey: 16:59 HEENT: No deficits noted. Gastrointestinal: No deficits noted. : No deficits noted. sv No signs and/or symptoms were reported regarding the genitourinary system. Musculoskeletal: No deficits noted. No signs and/or symptoms reported regarding the musculoskeletal system. Assessment: 18:53 Reassessment: Patient appears in no apparent distress at this time. No changes from sv previously documented assessment. Patient and/or family updated on plan of care and expected duration. Pain level reassessed. Patient is alert, oriented x 3, equal unlabored respirations, skin warm/dry/pink. Vital Signs: 16:59 BP 129 / 82; Pulse 96; Resp 18; Temp 97.6; Pulse Ox 99% ; Pain 6/10; ll1 17:30 BP 111 / 82; Pulse 91; Resp 16; Temp 97.8; Pulse Ox 96% ; sv 18:25 BP 110 / 69; Pulse 81; Resp 16; Pulse Ox 95% ; sv Newfield Coma Score: 16:59 Eye Response: spontaneous(4). Verbal Response: oriented(5). Motor Response: obeys sv commands(6). Total: 15. 17:30 Eye Response: spontaneous(4). Verbal Response: oriented(5). Motor Response: obeys sv commands(6). Total: 15. Trauma Score (Adult): 16:59 Eye Response: spontaneous(1); Verbal Response: oriented(1); Motor Response: obeys sv commands(2); Systolic BP: > 89 mm Hg(4); Respiratory Rate: 10 to 29 per min(4); Newfield Score: 15; Trauma Score: 12 17:30 Eye Response: spontaneous(1); Verbal Response: oriented(1); Motor Response: obeys sv commands(2); Systolic BP: > 89 mm Hg(4); Respiratory Rate: 10 to 29 per min(4); Newfield Score: 15; Trauma Score: 12 ED Course: 16:46 Patient arrived in ED. am2 16:47 Keyshawn Minor MD is Private Physician. am2 16:49 Walter Loco MD is Attending Physician. rn 16:52 Annette Cox RN is Primary Nurse. sv 16:59 ED physician to see patient. sv 16:59 Arm band placed on. sv 16:59 Patient maintains SpO2 saturation greater than 95% on room air. sv 17:00 Thermoregulation: warm blanket given to patient. sv 17:01 Triage completed. ll1 17:02 Patient has correct armband on for positive identification. Bed in low position. Call sv light in reach. Pulse ox on. NIBP on. 17:09 Radiology exam delayed due to lab results not completed at this time. (BUN/Creatinine). vm2 17:15 Inserted saline lock: 20 gauge in left antecubital area, using aseptic technique. Blood sv collected. Flushed left antecubital with 5 ml normal saline. 17:36 Radiology exam delayed due to lab results not completed at this time. (BUN/Creatinine). vm2 17:[address] via wheelchair. sv 17:59 CT Chest, Abdomen, Pelvis - W/Contrast In Process Unspecified. EDMS 18:04 Patient moved back from CT. sv 18:53 No provider procedures requiring assistance completed. IV discontinued, intact, sv bleeding controlled, No redness/swelling at site. Pressure dressing applied. Administered Medications: 17:17 Drug: Demerol 25 mg {Note: RASS1.} Route: IVP; Site: left antecubital; sv 18:00 Follow up: Response: No adverse reaction; Pain is decreased; RASS: Alert and Calm (0) sv Intake: 16:59 PO: 0ml; Total: 0ml. sv 17:30 PO: 0ml; Total: 0ml. sv Output: 16:59 Urine: 0ml; Total: 0ml. sv 17:30 Urine: 0ml; Total: 0ml. sv Outcome: 18:36 Discharge ordered by . rn 18:53 Discharged to home via wheelchair. sv 18:53 Condition: stable 18:53 Discharge instructions given to patient, Instructed on discharge instructions, follow up and referral plans. Demonstrated understanding of instructions, follow-up care. 18:54 Patient's length of stay was not longer than 2 hours. sv 18:54 Patient left the ED. sv Signatures: Dispatcher [employer] EDMT Annette Cox RN RN Walter Loco MD MD rn Moreno, Amanda am2 McGuire, [facility] Rafiq Gill RN RN ll1 Corrections: (The following items were deleted from the chart) 18:36 17:17 Demerol 25 mg IVP in left antecubital sv sv
--- NOTE | 2019-09-16 18:37 | EDPHYS ---
Physician Documentation [facility] Name: Rosario Jorge Age: 64 yrs Sex: Female : 1955 Arrival Date: 09/16/2019 Time: 16:46 Bed 4 Private MD: Keyshawn Minor ED Physician Walter Loco HPI: 09/15 17:03 This 64 yrs old Female presents to ER via Wheelchair with complaints of Fall rn Injury. 17:03 Details of fall: The patient fell from an upright position. Onset: The symptoms/episode rn began/occurred 3 day(s) ago. Associated injuries: The patient sustained injury to the chest, injury to the abdomen. Severity of symptoms: At their worst the symptoms were moderate, in the emergency department the symptoms are unchanged. The patient has not experienced similar symptoms in the past. Reports slipped on powder on floor 3 days ago, getting worse, no head injury or LOC, reports pain with movement and palpation of left lateral/posterior ribs/flank/abdomen/lower back. No extremity injuries or pain. Not on blood thinners. . Historical: - Allergies: 17:04 GRISEOFULVIN; ll1 17:04 Mefloquine; ll1 17:04 NSAIDS; ll1 17:04 Rifampin; ll1 17:04 Sulfa (Sulfonamide Antibiotics); ll1 17:04 Tizanidine; ll1 17:04 Minocycline; ll1 17:04 Imitrex; ll1 17:04 NSAIDS (Non-Steroidal Anti-Inflamma; ll1 17:04 adhesive tape; ll1 17:04 [id number] Antimigraine Agents; ll1 - PMHx: 17:04 Celiac Disease; Colitis; Osteoporosis; Rheumatoid Arthritis; COPD; ll1 - PSHx: 17:04 Appendectomy; sinus surgery; thyroid surgery; carpel tunnel; partial hysterectomy; ll1 Bladder suspension; rotator cuff repair; - Immunization history:: Adult Immunizations. - Social history:: Patient/guardian denies using alcohol, street drugs, tobacco products, Smoking status: Patient denies any tobacco usage or history of. - Family history:: not pertinent. - Hospitalizations: : No recent hospitalization is reported. ROS: 17:03 Constitutional: Negative for fever, chills, and weight loss, Eyes: Negative for injury, rn pain, redness, and discharge, Neck: Negative for injury, pain, and swelling, Cardiovascular: + left lateral and posterior chest wall pain Respiratory: Negative for shortness of breath, cough, wheezing Abdomen/GI: + left bad and flank pain Back: + mid and low back pain MS/Extremity: Negative for injury and deformity, Skin: Negative for injury, rash, and discoloration, Neuro: Negative for headache, weakness, numbness, tingling, and seizure. Exam: 17:03 Constitutional: This is a well developed, well nourished patient who is awake, alert, rn appears uncomfortable, slow to walk to bed from wheelchair Head/Face: Normocephalic, atraumatic. Eyes: Pupils equal round and reactive to light, extra-ocular motions intact. Periorbital areas with no swelling, redness, or edema. Neck: Trachea midline, No vertebral tenderness Chest/axilla: + left lateral/posterior thoracic tenderness, no crepitus Cardiovascular: Regular rate and rhythm. No pulse deficits. Respiratory: Speaking full sentences. No increased work of breathing, no retractions or nasal flaring. Abdomen/GI: Soft, mild left sided abd tenderness, no rebound Back: No spinal tenderness MS/ Extremity: Pulses equal, no cyanosis. Neurovascular intact. Full, normal range of motion. Equal circumference. Neuro: Awake and alert, GCS 15, oriented to person, place, time, and situation. Cranial nerves II-XII grossly intact. Motor strength 5/5 in all extremities. Sensory grossly intact. Cerebellar exam normal. Normal gait. Vital Signs: 16:59 BP 129 / 82; Pulse 96; Resp 18; Temp 97.6; Pulse Ox 99% ; Pain 6/10; ll1 17:30 BP 111 / 82; Pulse 91; Resp 16; Temp 97.8; Pulse Ox 96% ; sv 18:25 BP 110 / 69; Pulse 81; Resp 16; Pulse Ox 95% ; sv Natalya Coma Score: 16:59 Eye Response: spontaneous(4). Verbal Response: oriented(5). Motor Response: obeys sv commands(6). Total: 15. 17:30 Eye Response: spontaneous(4). Verbal Response: oriented(5). Motor Response: obeys sv commands(6). Total: 15. Trauma Score (Adult): 16:59 Eye Response: spontaneous(1); Verbal Response: oriented(1); Motor Response: obeys sv commands(2); Systolic BP: > 89 mm Hg(4); Respiratory Rate: 10 to 29 per min(4); Oakland Score: 15; Trauma Score: 12 17:30 Eye Response: spontaneous(1); Verbal Response: oriented(1); Motor Response: obeys sv commands(2); Systolic BP: > 89 mm Hg(4); Respiratory Rate: 10 to 29 per min(4); Natalya Score: 15; Trauma Score: 12 MDM: 16:49 Patient medically screened. rn 18:34 Differential diagnosis: contusion, fracture, sprain, strain. Data reviewed: vital rn signs, nurses notes, lab test result(s), radiologic studies, CT scan, and as a result, I will discharge patient. Counseling: I had a detailed discussion with the patient and/or guardian regarding: the historical points, exam findings, and any diagnostic results supporting the discharge/admit diagnosis, lab results, radiology results, the need for outpatient follow up, to return to the emergency department if symptoms worsen or persist or if there are any questions or concerns that arise at home. Response to treatment: the patient's symptoms have markedly improved after treatment, and as a result, I will discharge patient. Special discussion: I discussed with the patient/guardian in detail that at this point there is no indication for admission to the hospital. It is understood, however, that if the symptoms persist or worsen the patient needs to return immediately for re-evaluation. ED course: No acute findings on CT chest/abd/pelvis, will dc home. Has tramadol/norco/flexeril, will not prescribe more pain medication. . 05 17:03 Order name: CBC with Diff; Complete Time: 17:43 rn 09/15 17:03 Order name: BMP; Complete Time: 17:43 rn 09/15 17:03 Order name: IV Start; Complete Time: 17:29 rn 09/15 17:03 Order name: CT Chest, Abdomen, Pelvis - W/Contrast; Complete Time: 18:26 rn Administered Medications: 17:17 Drug: Demerol 25 mg {Note: RASS1.} Route: IVP; Site: left antecubital; sv 18:00 Follow up: Response: No adverse reaction; Pain is decreased; RASS: Alert and Calm (0) sv Disposition: 09/16/19 18:36 Discharged to Home. Impression: Contusion of left back wall of thorax, Contusion of lower back and pelvis. - Condition is Stable. - Discharge Instructions: Contusion. - Medication Reconciliation Form, Thank You Letter, Antibiotic Education, Prescription Opioid Use form. - Follow up: Private Physician; When: As needed; Reason: Recheck today's complaints, Re-evaluation by your physician. - Problem is new. - Symptoms have improved. Signatures: Dispatcher [employer] EDAnnette Dickey RN RN Walter Lewis MD MD rn Lewis, GARETH Conroy RN ll1 Corrections: (The following items were deleted from the chart) 18:54 18:36 09/16/2019 18:36 Discharged to Home. Impression: Contusion of left back wall of sv thorax; Contusion of lower back and pelvis. Condition is Stable. Forms are Medication Reconciliation Form, Thank You Letter, Antibiotic Education, Prescription Opioid Use. Follow up: Private Physician; When: As needed; Reason: Recheck today's complaints, Re-evaluation by your physician. Problem is new. Symptoms have improved. rn
[2019-09-16 19:23] VITALS: TEMP 97.8
[2019-09-16 19:25] VITALS: BP 110/69; O2SAT 95
== END 2019-09-16 18:54 | disposition home or self-care (01) ==
LOC: ER 16:43
DX: S20.222A Contusion of left back wall of thorax, initial encounter (principal); S30.0XXA Contusion of lower back and pelvis, initial encounter; W01.0XXA Fall on same level from slipping, tripping and stumbling without subsequent striking against object, initial encounter; Y93.9 Activity, unspecified; Y92.9 Unspecified place or not applicable; Z88.2 Allergy status to sulfonamides; Z88.6 Allergy status to analgesic agent; Z88.8 Allergy status to other drugs, medicaments and biological substances
CPT/HCPCS: 85025; 80048; 36415; 71260; 74177; Q9967; J2175; 96374; 99285

== ENCOUNTER 2021-03-29 11:26 | Emergency (ER) | payer OTHER ==
--- OUTSIDE RECORDS SUMMARY | 2021-03-29 11:30 | XMS REPORT | Continuity of Care Document ---
:1955 Author Organization [facility] t Address [address] [place] [address] Care Team Providers Name Role Phone BILLY_Ashly Attending Clinician Unavailable Marga Attending Clinician Unavailable Chuck Garg Attending Clinician Unavailable Tin Brower Attending Clinician [phone] MELA Attending Clinician Unavailable GIOVANNI Attending Clinician Unavailable Silvano Admitting Clinician Unavailable Marga Admitting Clinician Unavailable SEDA Admitting Clinician Unavailable Physician, Primary Care Admitting Clinician Unavailable Payers Payer Name Policy Type Policy Number Effective Date Expiration Date Gisela GRANT (MEDICARE [id number] 2019 REPLACEMENT PPO) 00:00:00 Problems This patient has no known problems. Allergies, Adverse Reactions, Alerts Allergy Allergy Status Severity Reaction(s) Onset Inactive Treating Comm ents Source Name Type Date Date Clinician adhesive DA Active SV [facility] tape 07-08 [place] 00:[facility] adhesive DA Active SV CAUSES [facility] tape BLISTER 07-08 [place] LOOKING 00:00: Orthope SKIN. SKIN 00 dic TEARS Hospita l latex DA Active MO 2016- [facility] 08-11 00:00: [facility] 00 [facility] latex DA Active MO INHALED PER 2017-0 [facility] PATIENT 08-11 00:00: [facility] 00 [facility] mefloqui DA Active MO 2017-0 [facility] ne 08-10 00:00: [facility] 00 dic [facility]osp[facility] mefloqui DA Active MO WILL INDUCE 2016- [facility] ne COLITIS 08-10 00:00: [facility] 00 dic [facility]ita [facility] NSAIDS DA Active MO 2015-05 [facility] (Non-[place] 0- [place] roidal 00:00: Orthope Anti-Inf 00 dic lamma Hospita l Sulfa DA Active MO RASHES 2015-05 [facility] (Sulfona 0- [place] mide 00:00: Orthope Antibiot 00 dic ics) Hospita l rifampin DA Active U 2015-05 [facility] 0- 00:00: [facility] 00 dic Hospita l griseofu DA Active MO RASHES 2015-05 [facility] lvin 0-03 [place] 00:00: [facility] 00 dic [facility] adhesive DA Active MO 2015-05 [facility] tape 0- [place] 00:00: [facility] 00 [facility] sumatrip DA Active SV THROAT 2015-05 [facility] [place]WE[place] [facility] minocycl DA Active U 2015-05 [facility] ine 0-03 [place] 00:00: [facility] 00 dic [facility] tizanidi DA Active MO LOW 2015-05 [facility] [place] [facility] oats DA Active MO 2015-05 [facility] 0-03 00:00: [facility] 00 dic [facility]ospita l barley DA Active MO 2015-05 [facility] 0-03 00:00: [facility] 00 dic [facility]ospita l wheat DA Active MO 2015-05 [facility] 0-03 [place] 00:00: [facility] 00 dic [facility]ita [facility] oats FA Active MO 2015-05 [facility] 0-03 00:00: [facility] 00 dic [facility]ospita l barley FA Active MO 2015-05 [facility] 0-03 00:00: [facility]ope 00 dic [facility]ospita l wheat FA Active MO 2015-05 [facility] 0-03 [place] 00:00: [facility] 00 dic [facility] wheat FA Active MO HAS CELIAC 2015-05 [facility] DISEASE 0-03 [place] 00:00: [facility] 00 dic [facility] NSAIDS DA Active MO NEEDS TO 2015-05 [facility] (Non-[facility] AVOID HAS 0-03 [place] roidal COLITIS 00:00: Orthope Anti-Inf 00 dic lamma Hospita l rifampin DA Active U WILL INDUCE 2015-05 [facility] COLITIS 0 [place] 00:00: [facility] 00 dic [facility] adhesive DA Active MO CAUSES 2015-05 [facility] tape BLISTER 0- [place] LOOKING SKIN 00:00: Orth ope 00 dic Hospita l minocycl DA Active U WILL INDUCE 2015-05 [facility] ine COLITIS 0 [place] 00:00: Orthope 00 dic Hospita l oats FA Active MO HAS CELIAC 2015-05 [facility] DISEASE 0 [place] 00:00: [facility]ope 00 dic [facility]ospita [facility] barley FA Active MO CELIAC 2015-05 [facility] DISEASE 0 [place] 00:00: [facility] 00 dic [facility]ospita [facility] KINESIOL DA Active MO BLISTERS/ 2015- [facility] OGY TAPE BRUISING 02-08 [place] APPEARANCE/T 00:00: Orth ope ORN SKIN 00 dic Hospita l RYE DA Active MO HAS CELIAC [facility] DISEASE 02-08 [place] 00:00: Orthope 00 dic Hospita l Medications This patient has no known medications. Procedures This patient has no known procedures. Encounters Start End Encounter Admission Attending Care Care Encounter Source Date/Time Date/Time Type Type Clinicians Facility Department ID 2021-03-28 Outpatient GC_SWHAOMC_ PRIV PRIV [id number] 01-01 [facility] 11:58:35 Kirsten [id number] Medic al 2021-03-28 Outpatient GC_[id number] PRIV PRIV [id number] 01-01 [facility] 05:38:35 _Noah_L [id number] Medica l 2019-07-12 Inpatient HUSSAIN OakleyTO DAYS [id number] [facility] 15:13:00 Bahman [id number] [place] [facility] 2021-01-04 2021-01-04 Outpatient [facility] [id number] [address] [place] 00:00:00 00:00:[address] 2020-09-24 2020-09-24 Outpatient NoahYue PRIV PRIV [id number] 00:00:00 00:00:00 horacioKatalina [id number] 2020-07-12 2020-07-12 Outpatient MELA [facility] [id number] [address] [place] 00:00:00 00:00:00 BLAYNE [address] 2020-06-21 2020-06-21 Outpatient [facility] [id number] [place] 00:00:00 00:00:[address] 2019-07-04 2019-07-04 Outpatient LATANYA Garg RADI [id number] [facility] 10:45:00 10:45:00 Bahman [address] [place] [facility] 2019-07-04 2019-07-04 [facility] [id number] [place] 00:00:00 00:00:00 JERAMY [address] Results Test Description Test Time Test Comments Results Result Sour e Comments - MRI UP JNT W/O 2019-07-05 Patient Name: CONT RT 16:17:00 BERNARD KING Unit No: [id number] EXAMS: CPT CODE: [id number] MRI UP [facility] W/[place] [address] MR of the right shoulder without contrast TECHNIQUE: Paracoronal, parasagittal and axial multisequence images obtained. COMPARISON: MRI dated 01/27/2018. FINDINGS: Acromioclavicular joint: Mild degenerative changes. Rotator cuff: Marked supraspinatus tendinosis is again demonstrated with undersurface/interstiti al tear anteriorly, likely similar to prior exam. Additional interstitial tear of the posterior supraspinatus tendon is low-grade and slightly more apparent than prior exam. Low-grade interstitial tear of the superior subscapularis tendon is present. Rotator cuff musculature is normal in size and signal intensity. Long head biceps tendon: The biceps tendon is medially subluxated with superimposed tendinosis. There is suspected partial tear of the proximal tendon near the anchor. Labrum: Tear of the superior to posterior inferior labrum is not significant changed. Cartilage/ bone: No full thickness chondral defect. No acute fracture. Bone marrow signal is within normal limits. Other: Small joint effusion is present. IMPRESSION: 1. Undersurface/interstiti al tear of the anterior supraspinatus tendon, similar to prior exam. Additional interstitial tear of the posterior supraspinatus tendon is slightly more apparent than prior exam. 2. Medial subluxation of the biceps tendon with supraspinatus tendinosis and suspected partial tear proximally. 3. Tear of the superior to posterior inferior labrum. at 1617 Reported and signed by: Ray Hallman M.D. CC: Bahman Garg MD Technologist: GILMA BOYLE RT(R) Transcribed D/ ([id number]) t.NICOLASA.[facility] NAME: BERNARD KING [address] [facility] PHYS: Bahman Akers MD : 1955 AGE: 63 SEX: F [place] [address] LOC: Y.MRI PHONE #: [phone] EXAM DATE: 07/04/2019 STATUS: DEP CLI FAX #: [phone] RAD #: [id number] D/C DT PAGE 1 Signed Report Patient Name: BERNARD KING Unit No: [id number] EXAMS: CPT CODE: [id number] MRI [place] JNT W/[place] [id number] <Continued> Orig Print D/T: S: 07/05/2019 (7730) [facility] NAME: BERNARD KING [address] [facility] PHYS: Bahman Akers MD : 1955 AGE: 63 SEX: F [place] [address] LOC: Y.MRI PHONE #: [phone] EXAM DATE: 07/04/2019 STATUS: DEP CLI FAX #: [phone] RAD #: [id number] D/C DT PAGE 2 Signed Report
[2021-03-29 13:00] LABS: Absolute Lymphocytes (CBC) 2.1 K/uL (0.7-4.9); Basophils % 0.9 % (0-1.3); Hematocrit 36.9 % (36.0-45.0); Lymphocytes % 36.8 % (15.3-44.8); MPV 8.2 fL (7.6-11.3); RBC Red Blood Cell Count 3.93 M/uL (3.86-4.86)
--- NOTE | 2021-03-29 14:22 | RAD REPORT ---
EXAM DESCRIPTION: RAD - Chest Single View - 03/29/2021 1:57 pm CLINICAL HISTORY: COUGH COMPARISON: August 2019 TECHNIQUE: AP portable chest image was obtained 03/29/2021 1:57 pm . FINDINGS: Lungs are clear. Under penetrated film technique accentuate lung markings. Heart and vascu lature are normal. No measurable pleural effusion and no pneumothorax. No acute bony abnormality seen . No acute aortic findings suspected. IMPRESSION: No acute cardiopulmonary process.
--- NOTE | 2021-03-29 15:26 | EDPHYS ---
Physician Documentation [facility] Name: Rosario Jorge Age: 65 yrs Sex: Female : 1955 Arrival Date: 03/29/2021 Time: 11:27 Bed 12 Private MD: ED Physician Walter Loco HPI: 03/29 12:17 This 65 yrs old Female presents to ER via Ambulatory with complaints of Cough.jmm 12:17 Onset: The symptoms/episode began/occurred gradually. Modifying factors: The symptoms jmm are alleviated by nothing, the symptoms are aggravated by nothing. Associated signs and symptoms: Pertinent positives: sore throat. The patient has not experienced similar symptoms in the past. Is a 65-year-old female with history of rheumatoid arthritis that presents emerged department with complaints of cough which is productive which has improved over the past few days. Patient was prescribed a Z-Rj but was advised by PCP to be evaluated in the ER for x-ray.. Historical: - Allergies: 11:43 Minocycline; tw2 11:43 NSAIDS (Non-Steroidal Anti-Inflamma; tw2 11:43 Rifampin; tw2 11:43 Sulfa (Sulfonamide Antibiotics); tw2 11:43 [id number] Antimigraine Agents; tw2 11:43 NSAIDS; tw2 11:43 Tizanidine; tw2 11:43 Mefloquine; tw2 11:43 Imitrex; tw2 11:43 GRISEOFULVIN; tw2 11:43 adhesive tape; tw2 11:46 SUMATRIPTAN; tw2 - Home Meds: 11:43 bybespi [Active]; Albuterol Inhl [Active]; tw2 12:03 cyproheptadine 2 mg/5 mL Oral syrp 10 mL 2 times a day [Active]; clonazepam 1 mg Oral tw2 tab 1 tab 3 times per day [Active]; cyclobenzaprine 10 mg Oral tab 1 tab 3 times per day [Active]; WelChol 625 mg oral tab 4 tabs prm [Active]; tramadol 50 mg Oral tab 1 tab every 8 hours [Active]; [place] 10-325 mg Oral tab 1 tab every 4-6 hours [Active]; Lomotil 2.5-0.025 mg oral tab 1 tabs prn [Active]; Zofran 8 mg Oral tab 1 tab prn [Active]; zolpidem 12.5 mg Oral TbMP 1 tab once daily [Active]; alprazolam 1 mg Oral tab 1 tab 3 times per day [Active]; sertraline 50 mg oral tab 1 tab 1/2 am and hs [Active]; Probiotic oral [Active]; Humic-trace minerals [Active]; metagenics ultraGI rerplenish [Active]; nitroglycerin 0.4 mg SL subl 1 tab [Active]; - PMHx: 11:46 Celiac Disease; Colitis; COPD; Osteoporosis; Rheumatoid Arthritis; tw2 12:03 esophageal spams; GERD; Migraine; Sjogren's disease; tw2 - Immunization history:: Client reports receiving the 2nd dose of the Covid vaccine. - Social history:: Smoking status: Patient denies any tobacco usage or history of. Patient uses alcohol, but reports only rare drinking. ROS: 12:17 Constitutional: Positive for body aches, chills, fatigue. [facility] 12:17 Respiratory: Positive for cough. 12:17 Abdomen/GI: Negative for nausea and vomiting, diarrhea. 12:17 All other systems are negative. Exam: 12:17 Constitutional: This is a well developed, well nourished patient who is awake, alert, jmm and in no acute distress. Head/Face: atraumatic. Eyes: EOMI, no conjunctival erythema appreciated ENT: Moist Mucus Membranes Neck: Trachea midline, Supple Chest/axilla: Normal chest wall appearance and motion. Cardiovascular: Regular rate and rhythm. No edema appreciated 12:17 Back: Normal ROM Skin: General appearance color normal MS/ Extremity: Moves all extremities, no obvious deformities appreciated, no edema noted to the lower extremities Neuro: Awake and alert, normal gait Psych: Behavior is normal, Mood is normal, Patient is cooperative and pleasant 12:17 Respiratory: the patient does not display signs of respiratory distress, Respirations: normal, Breath sounds: bronchial sounds, that are mild, are heard in the right posterior lower lobe. Vital Signs: 11:46 BP 128 / 98; Pulse 83; Resp 17; Temp 97.3(TE); Pulse Ox 98% on R/A; tw2 15:18 BP 124 / 87; Pulse 78; Pulse Ox 100% on R/A; ap3 MDM: 12:17 Patient medically screened. [facility] 15:25 Data reviewed: vital signs, nurses notes. Counseling: I had a detailed discussion with [facility] the patient and/or guardian regarding: the historical points, exam findings, and any diagnostic results supporting the discharge/admit diagnosis, the need for outpatient follow up, to return to the emergency department if symptoms worsen or persist or if there are any questions or concerns that arise at home. 03/29 12:34 Order name: CBC with Diff [facility] 03/29 12:34 Order name: BMP [facility] 03/29 12:34 Order name: SARS-COV-2 RT PCR (Document "Date of Onset" if Symptomatic) [facility] 03/29 12:35 Order name: CBC with Automated Diff; Complete Time: 13:03 [facility] 03/29 12:35 Order name: Basic Metabolic Panel; Complete Time: 13:26 [facility] 03/29 12:35 Order name: SARS-COV-2 RT PCR; Complete Time: 13:59 [facility] 03/29 12:35 Order name: Saline Lock; Complete Time: 12:53 [facility] 03/29 12:35 Order name: Chest Single View XRAY; Complete Time: 14:29 [facility] Administered Medications: No medications were administered Disposition: 17:13 Co-signature as Attending Physician, Walter Loco MD I agree with the assessment and rn plan of care. Attestation: The patient's history, exam findings, diagnostics, and a summary of any interventions or procedures was reviewed in detail with Momo PEARSON. Disposition Summary: 03/29/21 15:25 Discharge Ordered Location: Home [facility] Condition: Stable [facility] Diagnosis - Acute upper respiratory infection, unspecified [facility] Followup: [facility] - With: Private Physician - When: 2 - 3 days - Reason: Recheck today's complaints, Continuance of care, Re-evaluation by your physician Discharge Instructions: - Discharge Summary Sheet [facility] - Acute Bronchitis, Adult [facility] Forms: - Medication Reconciliation Form [facility] - Thank You Letter [facility] - Antibiotic Education [facility] - Prescription Opioid Use [facility] Prescriptions: - Breztri Aerosphere 160-9-4.8 mcg/actuation Inhalation HFA aerosol inhaler - inhale 2 puff by INHALATION route 2 times per day; 1 Pump; Refills: 0, Product [facility] Selection Permitted - promethazine-DM - take 1 Teaspoon by ORAL route every 4-6 hours; 200 milliliter; Refills: 0, jmm Product Selection Permitted Signatures: Dispatcher [employer] EDMS Momo Bustos PA PA jmm Nieto, Roman, MD MD rn Wise, Tara, RN RN tw2 Corrections: (The following items were deleted from the chart) 12:11 12:03 Home Meds: alprazolam 1 mg Oral TbDi 1 tab 3 times per day; tw2 tw2
--- NOTE | 2021-03-29 15:26 | ER ---
Nurse's Notes [facility] Name: Rosario Jorge Age: 65 yrs Sex: Female : 1955 Arrival Date: 03/29/2021 Time: 11:27 Bed 12 Private MD: Diagnosis: Acute upper respiratory infection, unspecified Presentation: 03/29 11:41 Chief complaint: Patient states: i went to see Dr. Newton and he put me on zithromax and tw2 promethazine DM. i had a really a really green mucous and it has cleared that up. real dry cough. and i stopped my [place] so i could cough something up. i have been using a humidifier and last night i coughed all night. i saw Dr. Newton on Mar 18. I wasn't feeling really good the weak before. Coronavirus screen: cough unrelated to allergies, runny nose, Client presents with at least one sign or symptom that may indicate coronavirus-19. Standard/surgical mask placed on the client. Provider contacted for isolation considerations. Ebola Screen: Patient denies travel to an Ebola-affected area in the 21 days before illness onset. Onset of symptoms was March 29, 2021. 11:41 Method Of Arrival: Ambulatory tw2 11:46 Initial Sepsis Screen: Does the patient meet any 2 criteria? No. Patient's initial tw2 sepsis screen is negative. Does the patient have a suspected source of infection? No. Patient's initial sepsis screen is negative. Risk Assessment: Do you want to hurt yourself or someone else? Patient reports no desire to harm self or others. 11:46 Acuity: EMILIA 4 tw2 Triage Assessment: 11:45 General: Appears in no apparent distress. Behavior is calm, cooperative, appropriate tw2 for age. Pain: Denies pain. Respiratory: Reports cough that is persistent. Historical: - Allergies: 11:43 Minocycline; tw2 11:43 NSAIDS (Non-Steroidal Anti-Inflamma; tw2 11:43 Rifampin; tw2 11:43 Sulfa (Sulfonamide Antibiotics); tw2 11:43 [id number] Antimigraine Agents; tw2 11:43 NSAIDS; tw2 11:43 Tizanidine; tw2 11:43 Mefloquine; tw2 11:43 Imitrex; tw2 11:43 GRISEOFULVIN; tw2 11:43 adhesive tape; tw2 11:46 SUMATRIPTAN; tw2 - Home Meds: 11:43 bybespi [Active]; Albuterol Inhl [Active]; tw2 12:03 cyproheptadine 2 mg/5 mL Oral syrp 10 mL 2 times a day [Active]; clonazepam 1 mg Oral tw2 tab 1 tab 3 times per day [Active]; cyclobenzaprine 10 mg Oral tab 1 tab 3 times per day [Active]; WelChol 625 mg oral tab 4 tabs prm [Active]; tramadol 50 mg Oral tab 1 tab every 8 hours [Active]; [place] 10-325 mg Oral tab 1 tab every 4-6 hours [Active]; Lomotil 2.5-0.025 mg oral tab 1 tabs prn [Active]; Zofran 8 mg Oral tab 1 tab prn [Active]; zolpidem 12.5 mg Oral TbMP 1 tab once daily [Active]; alprazolam 1 mg Oral tab 1 tab 3 times per day [Active]; sertraline 50 mg oral tab 1 tab 1/2 am and hs [Active]; Probiotic oral [Active]; Humic-trace minerals [Active]; metagenics ultraGI rerplenish [Active]; nitroglycerin 0.4 mg SL subl 1 tab [Active]; - PMHx: 11:46 Celiac Disease; Colitis; COPD; Osteoporosis; Rheumatoid Arthritis; tw2 12:03 esophageal spams; GERD; Migraine; Sjogren's disease; tw2 - Immunization history:: Client reports receiving the 2nd dose of the Covid vaccine. - Social history:: Smoking status: Patient denies any tobacco usage or history of. Patient uses alcohol, but reports only rare drinking. Screenin:48 Abuse screen: Denies threats or abuse. Nutritional screening: No deficits noted. ap3 Tuberculosis screening: No symptoms or risk factors identified. Fall Risk None identified. Assessment: 11:47 General: Appears in no apparent distress. Behavior is calm, cooperative. Pain: Denies ap3 pain. Neuro: Level of Consciousness is awake, alert, obeys commands, Oriented to person, place, time, situation, Appropriate for age Gait is steady, Speech is normal. Cardiovascular: Patient's skin is warm and dry. Respiratory: Reports cough that is persistent. 13:06 Reassessment: Patient and/or family updated on plan of care and expected duration. Pain ap3 level reassessed. Patient is alert, oriented x 3, equal unlabored respirations, skin warm/dry/pink. 15:01 Reassessment: Patient and/or family updated on plan of care and expected duration. Pain ap3 level reassessed. Patient is alert, oriented x 3, equal unlabored respirations, skin warm/dry/pink. Vital Signs: 11:46 BP 128 / 98; Pulse 83; Resp 17; Temp 97.3(TE); Pulse Ox 98% on R/A; tw2 15:18 BP 124 / 87; Pulse 78; Pulse Ox 100% on R/A; ap3 ED Course: 11:27 Patient arrived in ED. as 11:41 Momo Bustos PA is PHCP. [facility] 11:41 Walter Loco MD is Attending Physician. jmm 11:45 Arm band placed on. tw2 11:46 Triage completed. tw2 11:47 Regina Grey, GARETH is Primary Nurse. ap3 11:48 Patient has correct armband on for positive identification. Pulse ox on. NIBP on. Door ap3 closed. Noise minimized. 12:51 COVID swab sent to lab. ap3 12:52 Inserted saline lock: 20 gauge in right antecubital area, using aseptic technique. ap3 Blood collected. 13:57 Chest Single View XRAY In Process Unspecified. EDMS 15:33 No provider procedures requiring assistance completed. Patient did not have IV access 5 during this emergency room visit. Administered Medications: No medications were administered Outcome: 15:25 Discharge ordered by . [facility] 15:33 Discharged to home ambulatory, with family. [facility] 15:33 Condition: stable 15:33 Discharge instructions given to patient, family, Instructed on discharge instructions, follow up and referral plans. medication usage, safety practices, Demonstrated understanding of instructions, follow-up care, medications, Prescriptions given X 1. 15:39 Patient left the ED. 5 Signatures: Dispatcher [employer] EDMS Momo Bustos PA PA jmm Martinez, Amelia as Wise, Tara, RN RN tw2 Regina Grey RN RN ap3 Jenifer Goss RN RN 5 Corrections: (The following items were deleted from the chart) :11 12:03 Home Meds: alprazolam 1 mg Oral TbDi 1 tab 3 times per day; tw2 tw
[2021-03-29 16:09] VITALS: TEMP 97.3
[2021-03-29 16:10] VITALS: BP 124/87; O2SAT 100
== END 2021-03-29 15:39 | disposition home or self-care (01) ==
LOC: ER 11:26
DX: J06.9 Acute upper respiratory infection, unspecified (principal); Z20.822 Contact with and (suspected) exposure to COVID-19; Z88.1 Allergy status to other antibiotic agents; Z88.6 Allergy status to analgesic agent; Z88.8 Allergy status to other drugs, medicaments and biological substances
CPT/HCPCS: 85025; 80048; 36415; 71045; 99284; U0003

== ENCOUNTER 2024-05-01 17:11 | Emergency (ER) | payer OTHER ==
[2024-05-01] MEDS ORDERED: FENTANYL CITR 100 MCG/2 ML ONE (18:03)
--- NOTE | 2024-05-01 20:00 | RAD REPORT ---
EXAMINATION: XR Ankle Left 3 View CLINICAL INDICATION: Female, 68 years old. [facility] MAIN Pain;Swelling Bed Name: 7 TECHNIQUE: 3 view radiographs of the left ankle were obtained. COMPARISON: No prior exam. FINDINGS: Minimally displaced transverse fracture of the tip of the lateral malleolus. Pronounced ernesto rounding soft tissue swelling. Anterior ankle joint effusion. Moderate degenerative changes at the tibial dome medially and along the midfoot bones. IMPRESSION: Fracture of the tip of the lateral malleolus with surrounding soft tissue swelling. Ankle joint effus ion.
[2024-05-01] MEDS ORDERED: HYDROCODONE/APAP 5/325 MG TAB ONE (20:40)
--- NOTE | 2024-05-01 20:48 | EDPHYS ---
Physician Documentation [facility] Name: Rosario Jorge Age: 68 yrs Sex: Female : 1955 Arrival Date: 05/01/2024 Time: 17:11 Bed 7 Private MD: ED Physician Charis Sadler HPI: 05/01 18:36 This 68 yrs old Female presents to ER via EMS with complaints of Ankle Injury. kb 18:36 Pt is a 68 year old female who presents for pain and swelling to left ankle. States she kb was carrying something into the house from the car, misstepped and twisted left ankle. Denies any other injuries. . Historical: - Allergies: 17:54 adhesive tape; tm6 17:54 GRISEOFULVIN; tm6 17:54 Imitrex; tm6 17:54 Mefloquine; tm6 17:54 Minocycline; tm6 17:54 NSAIDS; tm6 17:54 NSAIDS (Non-Steroidal Anti-Inflamma; tm6 17:54 Rifampin; tm6 17:54 Sulfa (Sulfonamide Antibiotics); tm6 17:54 SUMATRIPTAN; tm6 17:54 Tizanidine; tm6 17:54 [id number] Antimigraine Agents; tm6 17:55 Zanaflex; tm6 - PMHx: 17:54 Celiac Disease; Colitis; COPD; esophageal spams; GERD; Migraine; Osteoporosis; tm6 Rheumatoid Arthritis; sjogren's disease; - Immunization history:: Flu vaccine is not up to date. - Infectious Disease History:: Denies. - Social history:: Smoking status: Patient denies any tobacco usage or history of. ROS: 18:35 Constitutional: As per HPI kb Exam: 18:35 Constitutional: This is a well developed, well nourished patient who is awake, alert, kb and in no acute distress. Head/Face: Normocephalic, atraumatic. ENT: Moist Mucous membranes Cardiovascular: Regular rate Respiratory: Respirations even and unlabored. No increased work of breathing. Talking in full sentences Skin: Warm, dry with normal turgor. Normal color. Neuro: Awake and alert, GCS 15, oriented to person, place, time, and situation. 18:35 Musculoskeletal/extremity: Extremities: grossly normal except: noted in the left lateral ankle: decreased ROM, pain, swelling, tenderness, ROM: limited active range of motion due to pain, Circulation is intact in all extremities. Sensation intact. Weight bearing: is unable to bear weight, Vital Signs: 17:20 BP 122 / 70; Pulse 79; Resp 18; Temp 98.5(O); Pulse Ox 96% on R/A; MAP 86 mmHg; Weight tm6 85.73 kg; Height 5 ft. 4 in. ; Pain 8/10; 18:45 BP 119 / 71; Pulse 79; Pulse Ox 96% on R/A; MAP 86 mmHg; Pain 6/10; tm6 19:25 Pain 8/10; tm6 19:33 BP 91 / 76; Pulse 79; Pulse Ox 99% on R/A; MAP 83 mmHg; tm6 20:30 BP 117 / 87; Pulse 76; Pulse Ox 100% on R/A; MAP 97 mmHg; tm6 21:09 BP 124 / 73; Pulse 83; Resp 17; Temp 98.5; Pulse Ox 97% on R/A; MAP 89 mmHg; Pain 7/10; tm6 17:20 Body Mass Index 32.44 (85.73 kg, 162.56 cm) tm6 17:20 Pain Scale: Adult tm6 18:45 Pain Scale: Adult tm6 19:25 Pain Scale: Adult tm6 21:09 Pain Scale: Adult tm6 MDM: 17:21 Medical Screening Exam initiated kb 18:35 Data reviewed: vital signs, nurses notes. kb 18:35 Differential diagnosis: fracture, sprain. Historians other than the Patient: EMS: [facility]. 20:46 Counseling: I had a detailed discussion with the patient and/or guardian regarding the historical points, exam findings, and any diagnostic results supporting the discharge/admit diagnosis, radiology results, the need for outpatient follow up, a orthopedic surgeon, to return to the emergency department if symptoms worsen or persist or if there are any questions or concerns that arise at home. 05/01 17:27 Order name: Ankle Left 3 View XRAY; Complete Time: 20:14 kb 05/01 19:26 Order name: Ice pack; Complete Time: 19:30 kb 05/01 20:15 Order name: Short Leg Splint; Complete Time: 20:53 kb Administered Medications: 18:26 Drug: fentaNYL (PF) IVP 25 mcg IVP once Route: IVP; Site: left hand; tm6 19:30 Follow up: Response: No adverse reaction tm6 20:53 Drug: HYDROcodone-acetaminophen PO 5 mg-325 mg 1 tabs PO once Route: PO; tm6 21:09 Follow up: Response: No adverse reaction tm6 Disposition Summary: 05/01/24 20:47 Discharge Ordered Notes: Location: Home kb Condition: Stable kb Diagnosis - Fracture of lateral malleolus - left kb Followup: kb - With: Emergency Department - When: As needed - Reason: Worsening of condition Followup: kb - With: Private Physician - When: 2 - 3 days - Reason: Recheck today's complaints, Continuance of care, Re-evaluation by your physician Discharge Instructions: - Discharge Summary Sheet kb - Ankle Fracture, [id number] kb Forms: - Medication Reconciliation Form kb - Antibiotic Education kb - Prescription Opioid Use kb - Patient Portal Instructions kb - Leadership Thank You Letter kb Signatures: Dispatcher [employer] Cynthia Mendes FNP-C FNP-Janie Chin RN RN tm6
--- NOTE | 2024-05-01 20:48 | ER ---
Nurse's Notes [facility] Name: Rosario Jorge Age: 68 yrs Sex: Female : 1955 Arrival Date: 05/01/2024 Time: 17:11 Bed 7 Private MD: Diagnosis: Fracture of lateral malleolus-left Presentation: 05/01 17:20 Chief complaint: EMS states: patient was working at the table when she rolled her left tm6 ankle and hit her face on the table. Left ankle is swollen. Coronavirus screen: Client denies travel out of the [place] in the last 14 days. Ebola Screen: Patient negative for fever greater than or equal to 101.5 degrees Fahrenheit, and additional compatible Ebola Virus Disease symptoms Patient denies exposure to infectious person. Patient denies travel to an Ebola-affected area in the 21 days before illness onset. No symptoms or risks identified at this time. Initial Sepsis Screen: Does the patient meet any 2 criteria? No. Patient's initial sepsis screen is negative. Does the patient have a suspected source of infection? No. Patient's initial sepsis screen is negative. Risk Assessment: Do you want to hurt yourself or someone else? Patient reports no desire to harm self or others. Onset of symptoms was May 01, 2024. 17:20 Method Of Arrival: EMS: [facility] tm6 17:20 Acuity: EMILIA 4 tm6 Triage Assessment: 17:20 General: Appears in no apparent distress. Behavior is calm, cooperative. Pain: tm6 Complains of pain in right ankle and anterior aspect of right ankle Pain currently is 8 out of 10 on a pain scale. EENT: No signs and/or symptoms were reported regarding the EENT system. Neuro: Level of Consciousness is awake, alert, obeys commands, Oriented to person, place, time, situation. Cardiovascular: Patient's skin is warm and dry. Respiratory: Airway is patent Respiratory effort is even, unlabored, Respiratory pattern is regular, symmetrical. GI: No signs and/or symptoms were reported involving the gastrointestinal system. Abdomen is flat, non-distended. : No signs and/or symptoms were reported regarding the genitourinary system. Derm: No signs and/or symptoms reported regarding the dermatologic system. Musculoskeletal: Swelling present in left lateral ankle and anterior aspect of left ankle Reports pain in left lateral ankle and anterior aspect of left ankle Pain is 8 out of 10 on a pain scale. Historical: - Allergies: 17:54 adhesive tape; tm6 17:54 GRISEOFULVIN; tm6 17:54 Imitrex; tm6 17:54 Mefloquine; tm6 17:54 Minocycline; tm6 17:54 NSAIDS; tm6 17:54 NSAIDS (Non-Steroidal Anti-Inflamma; tm6 17:54 Rifampin; tm6 17:54 Sulfa (Sulfonamide Antibiotics); tm6 17:54 SUMATRIPTAN; tm6 17:54 Tizanidine; tm6 17:54 [id number] Antimigraine Agents; tm6 17:55 Zanaflex; tm6 - PMHx: 17:54 Celiac Disease; Colitis; COPD; esophageal spams; GERD; Migraine; Osteoporosis; tm6 Rheumatoid Arthritis; sjogren's disease; - Immunization history:: Flu vaccine is not up to date. - Infectious Disease History:: Denies. - Social history:: Smoking status: Patient denies any tobacco usage or history of. Screenin:20 [facility] ED Fall Risk Assessment (Adult) History of falling in the last 3 months, tm6 including since admission Yes- single mechanical fall (1 pt) Confusion or Disorientation No (0 pts) Intoxicated or Sedated No (0 pts) Impaired Gait Yes (1 pt) Mobility Assist Device Used No (0 pt) Altered Elimination No (0 pt) Score/Fall Risk Level 0 - 2 = Low Risk Oriented to surroundings, Maintained a safe environment, Educated pt \T\ family on fall prevention, incl call for assistance when getting out of bed. Abuse screen: Denies threats or abuse. Denies injuries from another. Nutritional screening: No deficits noted. Tuberculosis screening: No symptoms or risk factors identified. Assessment: 17:20 Reassessment: see triage assessment. tm6 18:45 Reassessment: Patient and/or family updated on plan of care and expected duration. Pain tm6 level reassessed. Patient is alert, oriented x 3, equal unlabored respirations, skin warm/dry/pink. 21:10 Reassessment: Patient and/or family updated on plan of care and expected duration. Pain tm6 level reassessed. Patient is alert, oriented x 3, equal unlabored respirations, skin warm/dry/pink. Vital Signs: 17:20 BP 122 / 70; Pulse 79; Resp 18; Temp 98.5(O); Pulse Ox 96% on R/A; MAP 86 mmHg; Weight tm6 85.73 kg; Height 5 ft. 4 in. ; Pain 8/10; 18:45 BP 119 / 71; Pulse 79; Pulse Ox 96% on R/A; MAP 86 mmHg; Pain 6/10; tm6 19:25 Pain 8/10; tm6 19:33 BP 91 / 76; Pulse 79; Pulse Ox 99% on R/A; MAP 83 mmHg; tm6 20:30 BP 117 / 87; Pulse 76; Pulse Ox 100% on R/A; MAP 97 mmHg; tm6 21:09 BP 124 / 73; Pulse 83; Resp 17; Temp 98.5; Pulse Ox 97% on R/A; MAP 89 mmHg; Pain 7/10; tm6 17:20 Body Mass Index 32.44 (85.73 kg, 162.56 cm) tm6 17:20 Pain Scale: Adult tm6 18:45 Pain Scale: Adult tm6 19:25 Pain Scale: Adult tm6 21:09 Pain Scale: Adult tm6 ED Course: 17:18 Patient arrived in ED. tm6 17:18 Maintain EMS IV. Dressing intact. Good blood return noted. Site clean \T\ dry. Gauge \T\ tm 6 site: 20g L hand. Flushed with 10 mL NS. 17:20 Arm band placed on right wrist. tm6 17:20 Patient has correct armband on for positive identification. Bed in low position. Call tm6 light in reach. Side rails up X2. Provided Education on: use of call bansal. Client placed on continuous cardiac and pulse oximetry monitoring. NIBP monitoring applied. Pulse ox on. NIBP on. Door closed. Noise minimized. Warm blanket given. Pillow given. 17:21 Cynthia Zapata FNP-C is PHCP. kb 17:21 Charis Sadler MD is Attending Physician. kb 17:43 Janie Neff RN is Primary Nurse. tm6 17:54 Triage completed. tm6 18:05 Ankle Left 3 View XRAY In Process Unspecified. EDMS 19:30 Wound care: ice pack applied. tm6 20:53 Orthoglass splint: Posterior short lleg splint applied on left leg. tm6 21:10 No provider procedures requiring assistance completed. tm6 21:10 IV discontinued, intact, bleeding controlled, No redness/swelling at site. Pressure tm6 dressing applied. Administered Medications: 18:26 Drug: fentaNYL (PF) IVP 25 mcg IVP once Route: IVP; Site: left hand; tm6 19:30 Follow up: Response: No adverse reaction tm6 20:53 Drug: HYDROcodone-acetaminophen PO 5 mg-325 mg 1 tabs PO once Route: PO; tm6 21:09 Follow up: Response: No adverse reaction tm6 Medication: 17:20 VIS not applicable for this client. tm6 Outcome: 20:47 Discharge ordered by . ros 21:10 Discharged to home via wheelchair, with family, tm6 21:10 Condition: stable 21:10 Discharge instructions given to patient, family, Instructed on discharge instructions, follow up and referral plans. Demonstrated understanding of instructions, follow-up care, splint care, 21:11 Patient left the ED. tm6 Signatures: Dispatcher [employer] EDCynthia Murray FNP-C FNP-Janie Chin RN RN tm6
[2024-05-01 21:30] VITALS: TEMP 98.5
[2024-05-01 21:36] VITALS: BP 124/73; O2SAT 97
== END 2024-05-01 21:11 | disposition home or self-care (01) ==
LOC: ER 17:11
PROC: 2W3TX1Z Immobilization of Left Foot using Splint (ICD-10-PCS; principal; 2024-05-01)
DX: S82.62XA Displaced fracture of lateral malleolus of left fibula, initial encounter for closed fracture (principal); X50.1XXA Overexertion from prolonged static or awkward postures, initial encounter; Y93.89 Activity, other specified; Y92.017 Garden or yard in single-family (private) house as the place of occurrence of the external cause; J44.9 Chronic obstructive pulmonary disease, unspecified; K21.9 Gastro-esophageal reflux disease without esophagitis; M81.0 Age-related osteoporosis without current pathological fracture; K90.0 Celiac disease; Z88.2 Allergy status to sulfonamides; Z88.6 Allergy status to analgesic agent; Z88.8 Allergy status to other drugs, medicaments and biological substances
CPT/HCPCS: 73610; 96374; 99284; 29515; J3010